=== PATIENT | female | born 1960 | race Caucasian/White ===

== ENCOUNTER 2020-08-20 17:28 | Emergency (ER) | payer BC, SELFPAY ==
--- NOTE | ~2020-08-20 | XR_ITS ---
XR ankle RT 2V DATE: 08/20/2020 17:46 INDICATION: Right ankle pain laterally. Dropped an anchor on the heel in January. TECHNIQUE: 4 views COMPARISON: None FINDINGS: There is plantar and very prominent posterior calcaneal enthesopathy. No fracture or dislocation of the ankle or disruption of the ankle mortise is detected. No periosteal reaction or bone destruction. IMPRESSION: Calcaneal enthesopathy Reviewed, dictated and finalized at location A. 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
[2020-08-20 17:30] VITALS: BP 135/85; PULSE 74; RESP 18; TEMP 36.8; O2SAT 96
--- NOTE | 2020-08-20 17:31 | ED.LOWEXIN ---
HPI - Extremity Injury (Lower) General Chief Complaint: Extremity Injury, Lower Stated Complaint: right foot pain Time Seen by Provider: 08/20/20 17:31 Source: patient and RN notes reviewed Mode of arrival: ambulatory Limitations: no limitations History of Present Illness HPI Narrative: 60 yo female presents to the [facility] with C/O right lateral ankle pain since dropping an anchor on it 28 January 2020. Treatment at that time. Patient reports that it was purple and swollen and painful for several weeks. States over the last couple of weeks she has been waking up at night in pain. Related Data Home Medications Medication Instructions Recorded Confirmed bupropion HCl 300 mg PO DAILY 08/20/20 08/20/20 chlorthalidone 25 mg DAILY 08/20/20 08/20/20 fluticasone propion-salmeterol inh INHALATION BID 08/20/20 [Advair Diskus] metoprolol succinate 50 mg PO DAILY 08/20/20 08/20/20 naproxen 500 mg BID PRN 08/20/20 08/20/20 Allergies Allergy/AdvReac Type Severity Reaction Status Date / Time No Known Allergies Allergy Verified 08/20/20 17:31 Review of Systems Review of Systems: Narrative: CONSTITUTIONAL: Denies fever, chills, or sweats. CARDIOVASCULAR: Denies chest pain, palpitations, or edema. RESPIRATORY: Denies cough or dyspnea. GASTROINTESTINAL: Denies abdominal pain, nausea, vomiting, or diarrhea. GENITOURINARY: Denies dysuria or hematuria. SKIN: Denies rash or itching. MUSCULOSKELETAL: Denies back pain or myalgia. right lateral Ankle pain NEUROLOGIC: Denies headache, numbness, or weakness. PSYCHIATRIC: Denies anxiety or depression. All other systems reviewed are negative, except as documented in HPI. [facility] Past Medical History Medical History (Updated 08/20/20 @ 18:06 by Yesy Soto) Anxiety Asthma Depressed HTN (hypertension) Social History Social History Gender identity (if verbalized by the patient): Female Comments At the time of my signature, I reviewed and agree with the nursing past medical, surgical, social, and family history. There is no relevant family history pertinent to the patient complaint. Exam Narrative: Exam Narrative: GENERAL: This is a well-nourished, well-developed patient, in no apparent distress. HEAD: normocephalic, atraumatic. EYES: PERRL. Sclera clear/white. Vision is grossly intact. NECK: Neck supple, non-tender without lymphadenopathy, masses or thyromegaly. CARDIOVASCULAR: Regular rate and rhythm without murmurs, gallops, or rubs. RESPIRATORY: Clear to auscultation. Breath sounds equal bilaterally. No wheezes, rales, or rhonchi. GASTROINTESTINAL: Abdomen soft, non-tender, nondistended. Bowel sounds are active. No hepato-splenomegaly, or palpable masses. No guarding. SKIN: warm, intact with no suspicious lesions or rash, good texture and turgor. NEURO: awake, alert, and oriented to person, place and time. There were no obvious focal neurologic abnormalities. EXTREMITIES: No clubbing, cyanosis, or edema. No joint tenderness, effusion, or edema noted. No calf tenderness. Negative Homans sign bilaterally. BACK: Nontender without deformity or crepitance. No flank tenderness. Extrem: Ankle/foot/toe images: 1. tender to palpation without redness, swelling or bruising. Full ROM against resistance both flexion and dorsiflexion. Course Vital Signs Vital signs: Vital Signs Temperature 98.2 F 08/20/20 17:30 Pulse Rate 74 08/20/20 17:30 Respiratory Rate 18 08/20/20 17:30 Blood Pressure 135/85 08/20/20 17:30 Pulse Oximetry 96 08/20/20 17:30 Temperature 98.2 F 08/20/20 17:30 Pulse Rate 74 08/20/20 17:30 Respiratory Rate 18 08/20/20 17:30 Blood Pressure 135/85 08/20/20 17:30 Pulse Oximetry 96 08/20/20 17:30 Reviewed, within normal limits MDM - Extremity Injury (Lower) Differential Diagnosis Differential diagnosis: Likely ankle sprain and strain and ankle fracture Imaging Data Radiologist
== END 2020-08-20 18:08 | disposition home or self-care (01) ==
PROVIDERS: Emergency Provider Nurse Practitioner; PCP Family Medicine
DX: S93.401A Sprain of unspecified ligament of right ankle, initial encounter (principal); S96.911A Strain of unspecified muscle and tendon at ankle and foot level, right foot, initial encounter; W20.8XXA Other cause of strike by thrown, projected or falling object, initial encounter; M77.31 Calcaneal spur, right foot; F41.9 Anxiety disorder, unspecified; J45.909 Unspecified asthma, uncomplicated; F32.9 Major depressive disorder, single episode, unspecified; I10 Essential (primary) hypertension
CPT/HCPCS: 73600; 99213; G0463

== ENCOUNTER 2020-09-17 11:17 | Outpatient (RCR) | payer BC, SELFPAY ==
[2020-09-17] MEDS: ACETAMINOPHEN 325 MG TABLET 650 MG PO (13:27)
[2020-09-17] MEDS: FAMOTIDINE 20 MG TABLET PO (13:27)
[2020-09-17] MEDS: diphenhydrAMINE HCl CAP 25 MG CAPSULE PO (13:27)
[2020-09-17 13:31] VITALS: BP 126/62; PULSE 62; RESP 16; TEMP 36.7; O2SAT 96
[2020-09-17 14:52] VITALS: BP 117/65; PULSE 64; RESP 16; TEMP 36.3; O2SAT 99
--- NOTE | 2020-09-17 15:10 | PC.NURSE ---
Bamlanivimab infusion completed, pt observed for 45 minutes post infusion. No signs or symptoms of allergic reaction assessed nor report by patient. Antibody treatment discharge instructions and FAQ sheet, along with infusion center discharge papers given to patient.
== END 2020-09-17 16:41 ==
LOC: AMCINF 11:17
PROVIDERS: PCP Family Medicine; Visit Provider Internal Medicine Hematology & Oncology
DX: Z23 Encounter for immunization (principal); U07.1 COVID-19; I10 Essential (primary) hypertension
CPT/HCPCS: A9270; M0239; Q0239

== ENCOUNTER → 2020-12-27 17:23 | Outpatient (CLI) | payer BC, SELFPAY ==
--- NOTE | ~2020-12-27 | MM_ITS ---
EXAMINATION: MM screening [facility] [place] HISTORY: Screening TECHNIQUE: Craniocaudal and mediolateral oblique 3-D tomosynthesis images were obtained and synthetic 2-D images were generated. CAD analysis was submitted and interpreted. COMPARISON: Comparison to multiple prior studies sequentially, with oldest reviewed study dated 03/2012. BREAST PARENCHYMAL COMPOSITION: There are scattered areas of fibroglandular density. FINDINGS: There is no evidence of suspicious mass, calcification, or architectural distortion to sugg est malignancy in either breast. There has been no suspicious interval change. IMPRESSION: 1. No mammographic evidence of malignancy. 2. Recommend routine screening mammography in one year. BI-RADS Category 1: Negative Reviewed, dictated and finalized at location A.
== END ==
PROVIDERS: PCP Family Medicine; Visit Provider Family Medicine
DX: Z12.31 Encounter for screening mammogram for malignant neoplasm of breast (principal)
CPT/HCPCS: 77063; 77067

== ENCOUNTER 2021-02-26 06:51 | Outpatient (CLI) | payer BC, SELFPAY ==
--- NOTE | ~2021-02-26 | CT_ITS ---
EXAMINATION: CT soft tissue neck wo con DATE: 02/26/2021 07:16 INDICATION: Cervical lymphadenopathy. TECHNIQUE: Computed tomography (CT) of the neck was performed without intravenous contrast. Automated exposure control and iterative reconstruction technique were employed. The dose-length product was 4 87.32 mGy-cm. COMPARISON: None FINDINGS: There is mild atelectasis in right lung upper lobe. There is a 10 x 13 mm lymph node superf icial to right sternocleidomastoid muscle. There is a skin marker overlying this lymph node. There ar e changes of anterior fusion procedure from C5 to C7. There is moderate cervical spondylosis. IMPRESSION: 1. Borderline-enlarged superficial lymph node in right neck, likely reactive. Reviewed, dictated and finalized at location A.
== END 2021-02-26 06:52 | disposition home or self-care (01) ==
PROVIDERS: PCP Family Medicine; Visit Provider Family Medicine
DX: R59.0 Localized enlarged lymph nodes (principal)
CPT/HCPCS: 70490

== ENCOUNTER → 2021-03-19 03:21 | Outpatient (CLI) | payer BC, SELFPAY ==
[2021-03-19 19:42] LABS: SARS-CoV-2 RNA PCR Negative
== END ==
PROVIDERS: PCP Family Medicine; Visit Provider Surgery
DX: Z01.812 Encounter for preprocedural laboratory examination (principal); Z20.822 Contact with and (suspected) exposure to COVID-19
CPT/HCPCS: C9803; U0003; U0005

== ENCOUNTER 2021-03-22 03:38 | Day surgery (SDC) | payer BC, SELFPAY ==
[2021-03-21 09:45] VITALS: BMI 32.4
--- NOTE | 2021-03-21 12:06 | WPDANESEPPF ---
Anes - Initial Pre Proc Eval Procedure: Operation Date: 03/22/21 14:00 Proposed Procedures p Excisional Biopsy Right Cervical Lymph Node - Carlos Yoder DO Date/Time: 03/21/21 12:06 Surgeon: Carlos Yoder DO Pre Op Diagnosis: right cervical lymphadenopathy Patient Data Age: 60 Gender: F Height: 1.7 m Weight: 94 kg Allergies Allergy/AdvReac Type Severity Reaction Status Date / Time No Known Allergies Allergy Verified 03/22/21 13:00 Home Medications Medication Instructions Recorded Confirmed Type bupropion HCl 300 mg PO QAM 08/20/20 03/22/21 History chlorthalidone 25 mg PO QAM 08/20/20 03/22/21 History fluticasone propion-salmeterol 1 inh INHALATION DAILY 08/20/20 03/22/21 History [Advair Diskus] metoprolol succinate 50 mg PO QAM 08/20/20 03/22/21 History naproxen 500 mg PO BID PRN 08/20/20 03/22/21 History albuterol sulfate 90 mcg/actuation 1 puff INHALATION Q4H PRN 03/06/21 03/22/21 History aerosol inhaler alprazolam 0.25 mg tablet 0.25 mg PO BID PRN 03/06/21 03/22/21 History loratadine 10 mg tablet 10 mg PO DAILY 03/06/21 03/22/21 History potassium 99 mg tablet 99 mg PO DAILY 03/06/21 03/22/21 History Patient hx anesthesia problems: none Family hx anesthesia problems: none PMFSH Past Medical History Medical History Anxiety Asthma Bronchitis Depressed HTN (hypertension) Migraine Surgical History Surgical History H/O umbilical hernia repair History of neck surgery S/P colonoscopy S/P laparoscopic cholecystectomy S/P oophorectomy Family History Family History Father Hypertension Diabetes mellitus Skin cancer Lung disease Mother Diabetes mellitus Hypertension Unknown Heart disease Hypertension Allergy Social History Social History Smoking status: Never smoker Alcohol intake: current Substance use: never Living arrangements: with family Additional living arrangements comments: [place] Gender identity (if verbalized by the patient): Female Spiritual care concerns: No Anes - Eval Final PreProcedure Day of Procedure 03/21/21 12:06 Patient weight: obese Heart: regular rate and rhythm Lungs: clear to auscultation and normal air movement Airway: Mallampati scale class II Neurological: alert and oriented Last oral intake: >/= 8 hours ASA classification: III Emergent: no Anesthetic plan: proceed Anesthesia type and monitoring: general GIVS and standard monitoring Informed Consent: The patient's anesthetic plan and its attendant risks and benefits were discussed with the patient/family/POA. Questions were solicited and answers provided to the satisfaction of the patient/family/POA.
--- NOTE | 2021-03-22 12:06 | ECG_ITS ---
Measurements Intervals [place] Rate: 60 P: 45 MT: 150 QRS: 71 QRSD: 86 T: 42 QT: 442 QTc: 444 Interpretive Statements SINUS RHYTHM BASELINE ARTIFACT- V2 NORMAL ECG Electronically Signed On 03-22-2021 13:34:38 CDT by Gallo Hamm D.O.
[2021-03-22 12:48] VITALS: BP 128/88; PULSE 65; RESP 16; TEMP 36.7; O2SAT 100
[2021-03-22] MEDS: LACTATED RINGERS 1,000 ML 30 ML IV CONT (13:29)
[2021-03-22 14:04] LABS: Anion Gap 7 mmol/L (8-16); Blood Urea Nitrogen 18 mg/dL (7-17); Carbon Dioxide 28 mmol/L (22-30); Chloride 103 mmol/L (98-107); Estimated CRCL calculation 70 ml/min; Estimated Glomerular Filt Rate > 60; Glucose 93 mg/dL (65-110); Potassium 3.5 mmol/L (3.4-5.0); Sodium 138 mmol/L (137-145)
--- NOTE | 2021-03-22 14:16 | WPDHPUPDATE1 ---
History and Physical Update Update Date/Time: 03/22/21 14:16 History and Physical has been reviewed, including an updated exam of the patient. There are NO changes in the patient's condition. Risks, benefits, and alternatives have been discussed and questions answered. Patient agrees to proceed with procedure.
[2021-03-22] MEDS: ceFAZolin 2 GM/D5W 50 ML 2 GM/50 ML BAG IVPB (14:30)
[2021-03-22] MEDS: BUPIVACAINE/EPINEPHRINE 0.25% 10 ML VIAL 30 ML INFILTRATE (14:47)
[2021-03-22 15:03] VITALS: BP 106/65; PULSE 76; RESP 20; O2SAT 97
--- NOTE | 2021-03-22 15:09 | W.PM.PROC2 ---
Procedure Note - Detailed Date of Procedure 03/22/21 Pre-op Diagnosis right cervical lymphadenopathy Post-op Diagnosis same Procedure Performed Excisional biopsy of deep right cervical lymph node Surgeon Carlos Yoder, DO Anesthesia MAC and local (1% lidocaine with epinephrine) Indications This is a 60-year-old woman who presented with right cervical lymphadenopathy over the past 2 months. She does have a history of anterior cervical fusion that was accessed from the right size in October 2020. She did not any problems noted initially in this region, the past 2 months she has palpable lymph nodes that are also somewhat tender. She has been placed on antibiotics and did not any resolution of her symptoms. She now presents for excisional biopsy of a cervical lymph Findings Excisional biopsy was performed. Patient had a deep right cervical lymph node just anterior to the sternocleidomastoid but deep to the platysma. The lymph node was identified and carefully dissected free using blunt dissection and electrocautery. Lymph node was completely excised sent to lab for pathology. Description of Procedure Procedure as well as risks, benefits, and alternatives were discussed with the patient. Written consent was obtained and placed in chart prior to procedure. Patient was brought back to surgical suite. She was placed supine operating table. Time-out was done to confirm patient and procedure. IV sedation was then administered by anesthesia department. Her right neck was prepped and draped in sterile fashion using chlorhexidine prep. 1% lidocaine with epinephrine was infiltrated palpable lymph node in superior right lateral neck. A 2 cm oblique incision was made directly over this area using a 15 blade scalpel. Electrocautery was used for hemostasis and for dissection down through subcutaneous fat and platysma. The lymph node was identified just deep to the platysma and this was carefully dissected free using blunt dissection and electrocautery. The lymph node was completely excised and sent to the lab for pathology. The wound bed was then inspected. Hemostasis appeared adequate and no other abnormalities were noted. The platysma was then reapproximated using 3-0 Vicryl simple interrupted sutures. The skin was then approximated using 4 Monocryl running subcuticular suture. Dino who has an appointment. Patient was awakened from anesthesia and transferred to Estimated Blood Loss 5 Pathology yes (Right cervical lymph node) Complications No immediate complications Condition stable Disposition same day
[2021-03-22 15:30] VITALS: BP 105/66; PULSE 74; RESP 20
[2021-03-22] MEDS: ONDANSETRON INJ 4 MG/2 ML VIAL IV PUSH (15:40)
[2021-03-22 16:00] VITALS: BP 108/69; PULSE 73; RESP 20
[2021-03-22 16:15] VITALS: BP 114/69; PULSE 62; RESP 20
== END 2021-03-22 16:20 | disposition home or self-care (01) ==
PROVIDERS: Anesthesiology; PCP Family Medicine; Visit Provider Surgery
PROC: (CPT 38510; principal; 2021-03-22 14:00)
DX: R59.0 Localized enlarged lymph nodes (principal); Z98.1 Arthrodesis status; I10 Essential (primary) hypertension; J45.909 Unspecified asthma, uncomplicated; F41.9 Anxiety disorder, unspecified; F32.9 Major depressive disorder, single episode, unspecified; E66.9 Obesity, unspecified; Z68.32 Body mass index [BMI] 32.0-32.9, adult; Z79.899 Other long term (current) drug therapy
CPT/HCPCS: 38510; 36415; 80048; 88184; 88305; 93005; J0690; J2250; J2405; J2704; J3010; J7120

== ENCOUNTER 2022-02-22 14:54 | Emergency (ER) | payer BC, SELFPAY ==
[2022-02-22 15:05] VITALS: BP 132/88; PULSE 85; RESP 18; TEMP 36.1; O2SAT 97
--- NOTE | 2022-02-22 15:23 | ED.URI ---
HPI - URI/Sore Throat General Chief Complaint: Upper Respiratory Infection Stated Complaint: Sore Throat,Rt Ear Irritation Time Seen by Provider: 02/22/22 15:23 History of Present Illness HPI Narrative: Daryn Anthony is a 61 yo female with a PMH of asthma, anxiety, seasonal allergies, hypertension, comes to [facility] with a weeks worth of symptoms of fever that run 100 to 101.4 and feels like he has swelling in her throat, R ear. She feels poorly and states that she has been fairly fatigued; she has history of asthma although her asthma has not been bothering her Related Data Home Medications Medication Instructions Recorded Confirmed bupropion HCl 300 mg 24 hr tablet, 300 mg PO QAM 08/20/20 02/22/22 extended release chlorthalidone 25 mg tablet 25 mg PO QAM 08/20/20 02/22/22 fluticasone 250 mcg-salmeterol 50 1 inh inhalation DAILY 08/20/20 02/22/22 mcg/dose blistr powdr for inhalation (Advair Diskus) metoprolol succinate 50 mg 50 mg PO QAM 08/20/20 02/22/22 tablet,extended release 24 hr albuterol sulfate 90 mcg/actuation 1 puff inhalation Q4H PRN Dyspnea 03/06/21 02/22/22 aerosol inhaler (Ventolin HFA) alprazolam 0.25 mg tablet 0.25 mg PO BID PRN Anxiety 03/06/21 02/22/22 loratadine 10 mg tablet 10 mg PO DAILY 03/06/21 02/22/22 Allergies Allergy/AdvReac Type Severity Reaction Status Date / Time No Known Allergies Allergy Verified 02/22/22 14:58 Review of Systems Review of Systems: CONSTITUTIONAL: Denies fever, chills, sweats. Fever EYES: Denies visual changes, redness, discharge. ENT: Denies rhinorrhea, has congestion, has sore throat, otalgia. Has sore neck with swallowing CARDIOVASCULAR: Denies chest pain, palpitations, edema. RESPIRATORY: Denies dyspnea, wheezing, cough GASTROINTESTINAL: Denies abdominal pain, nausea, vomiting, diarrhea. GENITOURINARY: Denies dysuria, hematuria, abnormal discharge SKIN: Denies rash or itching. NEUROLOGIC: Denies numbness, or focal weakness. PSYCHIATRIC: Denies anxiety or depression. PMFSH Past Medical History Medical History Anxiety Asthma Bronchitis Depressed HTN (hypertension) Migraine Surgical History Surgical History H/O umbilical hernia repair History of neck surgery S/P colonoscopy S/P laparoscopic cholecystectomy S/P oophorectomy Status post excisional biopsy 03/22/21 Excisional biopsy of deep right cervical lymph node Family History Family History Father Hypertension Diabetes mellitus Skin cancer Lung disease Mother Diabetes mellitus Hypertension Unknown Heart disease Hypertension Allergy Social History Social History Smoking status: Never smoker Alcohol intake: current Substance use: never Additional living arrangements comments: [place] Gender identity (if verbalized by the patient): Female Spiritual care concerns: No Comments At time of signature, I agree with nursing past medical, surgical, social and family history. There is no relevant family history pertinent to the presenting complaint. Exam Narrative: GENERAL: This is a well-nourished, well-developed patient, in moderate distress. HEAD: normocephalic, atraumatic. EYES: Sclera clear/white. Vision is grossly intact. EARS: External ears normal, auditory canals mild erythema and without drainage, TMs normal without perforation. Hearing grossly intact. NOSE: External nose normal without nasal discharge, nares without redness, has congestion, no rhinorrhea. THROAT: Mucous membranes moist, posterior pharynx erythema with some swelling to the posterior pharynx NECK: Neck supple,tender submandibular lymph nodes, mostly with swallowing CARDIOVASCULAR: Regular rate and rhythm without murmurs, gallops, or rubs. RESPIRATORY: Clear to auscu
== END 2022-02-22 15:43 | disposition home or self-care (01) ==
PROVIDERS: Emergency Provider Nurse Practitioner; PCP Family Medicine
DX: J02.9 Acute pharyngitis, unspecified (principal); R05.9 Cough, unspecified; Z20.822 Contact with and (suspected) exposure to COVID-19; J45.909 Unspecified asthma, uncomplicated; I10 Essential (primary) hypertension; F41.9 Anxiety disorder, unspecified; F32.A Depression, unspecified
CPT/HCPCS: 87081; 87426; 87880; 99213; C9803; G0463

== ENCOUNTER 2023-01-10 17:30 | Emergency (ER) | payer BC, SELFPAY ==
[2023-01-10 17:49] VITALS: BP 124/75; PULSE 81; RESP 16; TEMP 36.1; O2SAT 97
--- NOTE | 2023-01-10 18:29 | ED.SKABFB ---
HPI - Skin/Abscess/Foreign Bdy General Chief complaint: Skin/Abscess/Foreign Body Stated complaint: Insect Bite Rt Thigh Time Seen by Provider: 01/10/23 18:00 Source: patient Mode of arrival: ambulatory Limitations: no limitations History of Present Illness HPI narrative: 62-year-old female presented for evaluation of wound to the right thigh which she reports is improving since 01/02/2023. At that time she was seen by her PCP who prescribed doxycycline defer was thought to be a possible brown recluse spider bite. Patient completed 7/10 days of the antibiotic, stopping when she thought it was causing heart racing. Reports the healing wound is tender. Today she presented after noticing a red line stretching from this wound up to the hip. The red line has mild bruising surrounding it. She denies tenderness to the streaked area. Denies known injury. States she contacted pcp exchange and was told to get evaluated if there is concern for infection. Denies additional skin changes, n/v/d/f/c. Related Data Home Medications Medication Instructions Recorded Confirmed bupropion HCl 300 mg 24 hr tablet, 300 mg PO QAM 08/20/20 01/10/23 extended release chlorthalidone 25 mg tablet 25 mg PO QAM 08/20/20 01/10/23 fluticasone 250 mcg-salmeterol 50 1 inh inhalation DAILY 08/20/20 01/10/23 mcg/dose blistr powdr for inhalation (Advair Diskus) albuterol sulfate 90 mcg/actuation 1 puff inhalation Q4H PRN Dyspnea 03/06/21 01/10/23 aerosol inhaler (Ventolin HFA) alprazolam 0.25 mg tablet 0.25 mg PO BID PRN Anxiety 03/06/21 01/10/23 loratadine 10 mg tablet 10 mg PO DAILY 03/06/21 01/10/23 gabapentin 100 mg capsule 100 mg PO DAILY 11/28/22 01/10/23 naproxen 500 mg tablet 500 mg PO DAILY 11/28/22 01/10/23 semaglutide 1 mg/dose (4 mg/3 mL) 1 mg subcut WEEKLY 01/08/23 01/10/23 subcutaneous pen injector Allergies Allergy/AdvReac Type Severity Reaction Status Date / Time No Known Allergies Allergy Verified 01/10/23 17:43 Review of Systems Review of Systems: CONSTITUTIONAL: Denies body aches, fever, chills, or sweats. EYES: Denies visual changes, redness, or discharge. ENT: Denies rhinorrhea, congestion CARDIOVASCULAR: Denies chest pain, palpitations, or edema. RESPIRATORY: Denies cough or dyspnea. GASTROINTESTINAL: Denies abdominal pain, nausea, vomiting, or diarrhea. SKIN: per HPI MUSCULOSKELETAL: Denies back pain, joint pain, or myalgia. NEUROLOGIC: Denies headache, numbness, tingling, or weakness. [facility] Past Medical History Medical History HTN (hypertension) Major depressive disorder, recurrent, in partial remission Mild persistent asthma, uncomplicated Other cervical disc degeneration, unspecified cervical region Prediabetes Pure hypercholesterolemia, unspecified Surgical History Surgical History H/O umbilical hernia repair History of neck surgery S/P colonoscopy S/P laparoscopic cholecystectomy S/P oophorectomy Status post excisional biopsy 03/22/21 Excisional biopsy of deep right cervical lymph node Family History Family History Father Hypertension Diabetes mellitus Skin cancer Lung disease Mother Diabetes mellitus Hypertension Unknown Heart disease Hypertension Allergy Social History Social History Smoking status: Never smoker Alcohol intake: current Substance use: never Substance use type: does not use Lack of Transportation: No Lack of Food: Never True Current Housing: I Have Housing Concerned About Future Housing: No Difficulty Paying Gas/Electric Bills: No Difficulty Paying for Meds: No Currently Unemployed: No Education: Trade/Vocational Certificate Difficulty w/ Childcare or Family Care: No Living arrangements: other Additional l
== END 2023-01-10 18:32 | disposition home or self-care (01) ==
PROVIDERS: Emergency Provider Nurse Practitioner Family; PCP Family Medicine
DX: S70.311A Abrasion, right thigh, initial encounter (principal); I10 Essential (primary) hypertension; E78.00 Pure hypercholesterolemia, unspecified; R73.03 Prediabetes
CPT/HCPCS: 99211; G0463

== ENCOUNTER 2023-01-23 00:08 | Day surgery (SDC) | payer BC, SELFPAY ==
[2023-01-08 11:32] VITALS: BMI 26.6
[2023-01-23 11:21] VITALS: BP 156/83; PULSE 89; RESP 18; TEMP 36.4; O2SAT 100
[2023-01-23] MEDS: LACTATED RINGERS 1,000 ML 150 ML IV CONT (11:25)
--- NOTE | 2023-01-23 11:45 | PM.HPGS ---
History of Present Illness History of Present Illness Consent: Risks, benefits, and alternatives have been discussed and questions answered. Patient agrees to proceed with procedure. Chief complaint: neoplasm screening Narrative: Daryn Anthony is a 62 year old female Presents for screening colonoscopy. Patient's current weight appetite and bowel movements are normal. Patient denies abdominal pain. She has had no bleeding. Family history is noncontributory. Review of Systems Review of Systems: Review of systems noncontributory. [facility] Past Medical History Medical History HTN (hypertension) Major depressive disorder, recurrent, in partial remission Mild persistent asthma, uncomplicated Other cervical disc degeneration, unspecified cervical region Prediabetes Pure hypercholesterolemia, unspecified Surgical History Surgical History H/O umbilical hernia repair History of neck surgery S/P colonoscopy S/P laparoscopic cholecystectomy S/P oophorectomy Status post excisional biopsy 03/22/21 Excisional biopsy of deep right cervical lymph node Family History Family History Father Hypertension Diabetes mellitus Skin cancer Lung disease Mother Diabetes mellitus Hypertension Unknown Heart disease Hypertension Allergy Social History Social History Smoking status: Never smoker Alcohol intake: current Substance use: never Substance use type: does not use Lack of Transportation: No Lack of Food: Never True Current Housing: I Have Housing Concerned About Future Housing: No Difficulty Paying Gas/Electric Bills: No Difficulty Paying for Meds: No Currently Unemployed: No Education: Trade/Vocational Certificate Difficulty w/ Childcare or Family Care: No Living arrangements: other Additional living arrangements comments: [place] Occupation/Education: occupation Gender identity (if verbalized by the patient): Female Sexual Orientation (if Verbalized by the Patient): Straight or Heterosexual Spiritual care concerns: No Meds Home Medications and Allergies Home Medications Medication Instructions Recorded Confirmed Type bupropion HCl 300 mg 24 hr tablet, 300 mg PO QAM 08/20/20 01/10/23 History extended release chlorthalidone 25 mg tablet 25 mg PO QAM 08/20/20 01/10/23 History fluticasone 250 mcg-salmeterol 50 1 inh inhalation DAILY 08/20/20 01/10/23 History mcg/dose blistr powdr for inhalation (Advair Diskus) albuterol sulfate 90 mcg/actuation 1 puff inhalation Q4H PRN Dyspnea 03/06/21 01/23/23 History aerosol inhaler (Ventolin HFA) alprazolam 0.25 mg tablet 0.25 mg PO BID PRN Anxiety 03/06/21 01/10/23 History loratadine 10 mg tablet 10 mg PO DAILY 03/06/21 01/10/23 History gabapentin 100 mg capsule 100 mg PO DAILY 11/28/22 01/10/23 History naproxen 500 mg tablet 500 mg PO DAILY 11/28/22 01/10/23 History semaglutide 1 mg/dose (4 mg/3 mL) 1 mg subcut WEEKLY 01/08/23 01/10/23 History subcutaneous pen injector potassium chloride 20 mEq 20 meq PO DAILY #90 tabs 01/19/23 01/23/23 Rx tablet,extended release(part/cryst) Allergies Allergy/AdvReac Type Severity Reaction Status Date / Time No Known Allergies Allergy Verified 01/23/23 11:20 Vital Signs Vital Signs - 24 hr 01/23/23 11:21 Temperature 97.5 F L Pulse Rate 89 Respiratory Rate 18 Blood Pressure 156/83 H Pulse Oximetry 100 Oxygen Delivery Room Air Exam Narrative: Physical exam reveals patient to be alert. Vital signs stable. HEENT exam is unremarkable. Patient is anicteric. Lungs are clear to auscultation and percussion. Heart is without murmur or extra sounds. Abdomen bowel sounds are present soft nontender with no organomegaly. Digital externa
--- NOTE | 2023-01-23 12:27 | WPDANESEPPF ---
Anes - Initial Pre Proc Eval Procedure: Operation Date: 01/23/23 12:30 Proposed Procedures p Screening Colonoscopy - Chalino Maxwell MD Date/Time: 01/23/23 12:27 Surgeon: Chalino Maxwell MD Pre Op Diagnosis: neoplasm screening Patient Data Age: 62 Gender: F Height: 1.7 m Weight: 74.9 kg Last Vital Signs Temp 97.5 F L 01/23/23 11:21 Pulse 89 01/23/23 11:21 Resp 18 01/23/23 11:21 BP 156/83 H 01/23/23 11:21 Pulse Ox 100 01/23/23 11:21 O2 Del Method Room Air 01/23/23 11:21 Allergies Allergy/AdvReac Type Severity Reaction Status Date / Time No Known Allergies Allergy Verified 01/23/23 11:20 Home Medications Medication Instructions Recorded Confirmed Type bupropion HCl 300 mg 24 hr tablet, 300 mg PO QAM 08/20/20 01/10/23 History extended release chlorthalidone 25 mg tablet 25 mg PO QAM 08/20/20 01/10/23 History fluticasone 250 mcg-salmeterol 50 1 inh inhalation DAILY 08/20/20 01/10/23 History mcg/dose blistr powdr for inhalation (Advair Diskus) albuterol sulfate 90 mcg/actuation 1 puff inhalation Q4H PRN Dyspnea 03/06/21 01/23/23 History aerosol inhaler (Ventolin HFA) alprazolam 0.25 mg tablet 0.25 mg PO BID PRN Anxiety 03/06/21 01/10/23 History loratadine 10 mg tablet 10 mg PO DAILY 03/06/21 01/10/23 History gabapentin 100 mg capsule 100 mg PO DAILY 11/28/22 01/10/23 History naproxen 500 mg tablet 500 mg PO DAILY 11/28/22 01/10/23 History semaglutide 1 mg/dose (4 mg/3 mL) 1 mg subcut WEEKLY 01/08/23 01/10/23 History subcutaneous pen injector potassium chloride 20 mEq 20 meq PO DAILY #90 tabs 01/19/23 01/23/23 Rx tablet,extended release(part/cryst) Patient hx anesthesia problems: none Family hx anesthesia problems: none Results Review: All pre-operative results and documents have been reviewed as part of the pre-operative evaluation. [facility] Past Medical History Medical History HTN (hypertension) Major depressive disorder, recurrent, in partial remission Mild persistent asthma, uncomplicated Other cervical disc degeneration, unspecified cervical region Prediabetes Pure hypercholesterolemia, unspecified Surgical History Surgical History H/O umbilical hernia repair History of neck surgery S/P colonoscopy S/P laparoscopic cholecystectomy S/P oophorectomy Status post excisional biopsy 03/22/21 Excisional biopsy of deep right cervical lymph node Family History Family History Father Hypertension Diabetes mellitus Skin cancer Lung disease Mother Diabetes mellitus Hypertension Unknown Heart disease Hypertension Allergy Social History Social History Smoking status: Never smoker Alcohol intake: current Substance use: never Substance use type: does not use Lack of Transportation: No Lack of Food: Never True Current Housing: I Have Housing Concerned About Future Housing: No Difficulty Paying Gas/Electric Bills: No Difficulty Paying for Meds: No Currently Unemployed: No Education: Trade/Vocational Certificate Difficulty w/ Childcare or Family Care: No Living arrangements: other Additional living arrangements comments: [place] Occupation/Education: occupation Gender identity (if verbalized by the patient): Female Sexual Orientation (if Verbalized by the Patient): Straight or Heterosexual Spiritual care concerns: No Anes - Eval Final PreProcedure Day of Procedure 01/23/23 12:27 Patient weight: normal Heart: regular rate and rhythm Lungs: clear to auscultation Airway: Mallampati scale class II Neurological: alert and oriented Last oral intake: >/= 8 hours ASA classification: II Emergent: no Anesthetic plan: proceed Anesthesia type and monitoring: general GIVS and standard monit
[2023-01-23 12:44] VITALS: BP 111/66; PULSE 76; RESP 19; O2SAT 100
[2023-01-23 12:54] VITALS: BP 130/76; PULSE 75; RESP 18; O2SAT 100
[2023-01-23 13:04] VITALS: BP 147/85; PULSE 69; RESP 15; O2SAT 100
== END 2023-01-23 13:09 | disposition home or self-care (01) ==
PROVIDERS: PCP Family Medicine; Visit Provider Internal Medicine Gastroenterology
PROC: 0DJD8ZZ Inspection of Lower Intestinal Tract, Via Natural or Artificial Opening Endoscopic (ICD-10-PCS; CPT 45378; principal; 2023-01-23 12:30)
DX: Z12.11 Encounter for screening for malignant neoplasm of colon (principal); K64.8 Other hemorrhoids; I10 Essential (primary) hypertension; E78.00 Pure hypercholesterolemia, unspecified; J45.30 Mild persistent asthma, uncomplicated; R73.03 Prediabetes; F33.41 Major depressive disorder, recurrent, in partial remission; Z79.899 Other long term (current) drug therapy; Z79.51 Long term (current) use of inhaled steroids
CPT/HCPCS: 45378; J2704; J7120

== ENCOUNTER → 2023-07-13 10:36 | Outpatient (CLI) | payer BC, SELFPAY ==
--- NOTE | ~2023-07-13 | CT_ITS ---
Non-contrast CT scan of the Abdomen and Pelvis Clinical indication: Abdominal pain Technique: 2.5 mm axial scans were obtained through the abdomen and pelvis without intravenous or or al contrast. Dose reduction technique was used on this scan by utilizing automated exposure control a nd iterative reconstruction technique. The dose-length product (DLP) was 472.01 mGy-cm. Findings: Images through the lung bases reveal no abnormalities. There is no evidence of renal or ureteral calculi. The kidneys and the ureters are nondilated. The liver, spleen, pancreas, gallbladder, and adrenals appear normal. There is no aortic aneurysm. There is no evidence of bowel obstruction. Appendix is minimally prominent 7-8 mm, but there is no in flammatory change present. Images through the pelvis were performed. There is no evidence of ascites or lymphadenopathy. Urinary bladder unremarkable. No pelvic mass seen. Impression: Minimally dilated appendix without significant inflammatory change. Correlate clinically for very ear ly acute appendicitis. Reviewed, dictated and finalized at location . ICAL TRIAL EDUCATOR Impression: Minimally dilated appendix without significant inflammatory change. Correlate c linically for very early acute appendicitis.
== END ==
PROVIDERS: PCP Family Medicine; Visit Provider Family Medicine
DX: R10.31 Right lower quadrant pain (principal)
CPT/HCPCS: 74176

== ENCOUNTER 2023-07-24 04:15 | Day surgery (SDC) | payer BC, SELFPAY ==
[2023-07-22 12:49] VITALS: BMI 24.7
--- NOTE | 2023-07-22 12:54 | PC.NURSE ---
Report to the Outpatient Waiting Room, entrance under the green pavilion located off [facility], at time 0600 on date 07/24/23. Planned Procedure Time: 0730. Time changes happen often and if your time is changed the preop area will call you the afternoon before. - You and your visitor will be asked to self-screen and do not enter if you have any COVID symptoms. - A mask is optional within the hospital at this time. Patients may have clear liquids (water, carbonated beverages, clear teas, apple juice) until 3 hours prior to surgery with a maximum of 20 ounces. - No food from midnight until time of surgery Take the following medications with a SIP of water the morning of surgery: BUPROPION, INHALERS DO NOT STOP ANY OF YOUR OTHER PRESCRIPTION MEDICATIONS PRIOR TO SURGERY ?EXCEPT THE FOLLOWING Medications to discontinue per physician: VITAMINS Date to take last dose: NO MORE UNTIL AFTER SURGERY PT HAS ALREADY STOPPED OZEMPIC Please no make-up, nail emirati, hairspray, perfume, deodorant, or body powder the day of surgery. No jewelry (including any body piercings) or valuables the day of surgery, leave them at home. Please take a shower or bath the night before, or the morning of, surgery with an antibacterial soap. Wear comfortable, loose fitting clothing. - Jewelry must be removed prior to entering the operating room. Rings and piercings that are not removed may be cut off. - The hospital will not accept responsibility for valuables. - Please leave all valuables, including medications, at home the day of surgery. If you are going home after surgery, a licensed funeral car driver must drive you home. - NO public transportation without another adult if you receive anesthesia. - We recommend that an adult stay with you for 24 hours following discharge. - We also recommend that you do not drive, make important decision, drink alcoholic beverages, or take any drugs that were not prescribed by your health care provider for at least 24 hours after your discharge time. Follow any additional instructions given to you from your surgeon. If you or anyone in your household have experienced Covid symptoms in the past week, please notify your surgeon or the nurse liaison at the phone number below for possible testing. Telephone instructions given to PT - CRIS RIVERA and asked if any additional questions and then verbalized understanding. Patient advised to call surgeon office or pre surgery nurse liaison [phone] if any additional questions.
[2023-07-24] VITALS (8 sets, daily range): BP systolic 118–175; BP diastolic 73–100; PULSE 60–84; RESP 14–20; TEMP 36.2–36.6; O2SAT 95–100
--- NOTE | 2023-07-24 07:04 | WPDANESEPPF ---
Anes - Initial Pre Proc Eval Procedure: Operation Date: 07/24/23 07:30 Proposed Procedures p Laparoscopic Appendectomy - Lindsey Hurtado MD Date/Time: 07/24/23 07:04 Surgeon: Lindsey Hurtado MD Pre Op Diagnosis: chronic appendicitis Patient Data Age: 63 Gender: F Height: 1.68 m Weight: 69.4 kg Allergies Allergy/AdvReac Type Severity Reaction Status Date / Time No Known Allergies Allergy Verified 07/22/23 12:47 Home Medications Medication Instructions Recorded Confirmed Type bupropion HCl 300 mg 24 hr tablet, 300 mg PO QAM 08/20/20 07/22/23 History extended release chlorthalidone 25 mg tablet 25 mg PO QAM 08/20/20 07/22/23 History fluticasone 250 mcg-salmeterol 50 1 inh inhalation DAILY 08/20/20 07/22/23 History mcg/dose blistr powdr for inhalation (Advair Diskus) albuterol sulfate 90 mcg/actuation 1 puff inhalation Q4H PRN Dyspnea 03/06/21 07/22/23 History aerosol inhaler (Ventolin HFA) alprazolam 0.25 mg tablet 0.25 mg PO BID PRN Anxiety 03/06/21 07/22/23 History loratadine 10 mg tablet 10 mg PO DAILY 03/06/21 07/22/23 History naproxen 500 mg tablet 500 mg PO DAILY 11/28/22 07/22/23 History semaglutide 1 mg/dose (4 mg/3 mL) 1 mg subcut WEEKLY 01/08/23 07/22/23 History subcutaneous pen injector potassium chloride 20 mEq 20 meq PO DAILY #90 tabs 01/19/23 07/22/23 Rx tablet,extended release(part/cryst) Patient hx anesthesia problems: none Family hx anesthesia problems: none Results Review: All pre-operative results and documents have been reviewed as part of the pre-operative evaluation. [facility] Past Medical History Medical History HTN (hypertension) Major depressive disorder, recurrent, in partial remission Mild persistent asthma, uncomplicated Other cervical disc degeneration, unspecified cervical region Prediabetes Pure hypercholesterolemia, unspecified Surgical History Surgical History H/O umbilical hernia repair History of neck surgery S/P colonoscopy S/P laparoscopic cholecystectomy S/P oophorectomy Status post excisional biopsy 03/22/21 Excisional biopsy of deep right cervical lymph node Family History Family History Father Hypertension Diabetes mellitus Skin cancer Lung disease Mother Diabetes mellitus Hypertension Unknown Heart disease Hypertension Allergy Social History Social History Smoking status: Never smoker Alcohol intake: never Substance use: never Substance use type: does not use Lack of Transportation: No Lack of Food: Never True Current Housing: I Have Housing Concerned About Future Housing: No Difficulty Paying Gas/Electric Bills: No Difficulty Paying for Meds: No Currently Unemployed: No Education: Trade/Vocational Certificate Difficulty w/ Childcare or Family Care: No Living arrangements: with family Additional living arrangements comments: [place] Occupation/Education: occupation Gender identity (if verbalized by the patient): Female Sexual Orientation (if Verbalized by the Patient): Straight or Heterosexual Spiritual care concerns: No Anes - Eval Final PreProcedure Day of Procedure 07/24/23 07:04 Patient weight: normal Heart: regular rate and rhythm Lungs: clear to auscultation Airway: Mallampati scale class II Neurological: alert and oriented Last oral intake: >/= 8 hours ASA classification: III Emergent: no Anesthetic plan: proceed Anesthesia type and monitoring: general ETT and standard monitoring Results Review: All pre-operative results and documents have been reviewed as part of the pre-operative evaluation. Informed Consent: The patient's anesthetic plan and its attendant risks and benefits were discussed with the patient/family/P
--- NOTE | 2023-07-24 07:17 | WPDHPUPDATE1 ---
History and Physical Update Update Date/Time: 07/24/23 07:17 History and Physical has been reviewed, including an updated exam of the patient. There are NO changes in the patient's condition. Risks, benefits, and alternatives have been discussed and questions answered. Patient agrees to proceed with procedure.
[2023-07-24] MEDS: LACTATED RINGERS 1,000 ML 30 ML IV CONT (07:20)
[2023-07-24] MEDS: KETOROLAC 15 MG/ML VIAL (*BKC) IV PUSH (07:20)
[2023-07-24 07:22] LABS: Glucose Point of Care 94 mg/dl (65-105)
--- NOTE | 2023-07-24 07:27 | ECG_ITS ---
Measurements Intervals [place] Rate: 66 P: 69 MD: 157 QRS: 86 QRSD: 125 T: 47 QT: 433 QTc: 456 Interpretive Statements SINUS RHYTHM RIGHT BUNDLE BRANCH BLOCK [120+ ms QRS DURATION, UPRIGHT V1, 40+ ms S IN I/aVL/V4/V5/V6] COMPARED TO ECG 03/22/2021 13:08:38 RIGHT BUNDLE-BRANCH BLOCK NOW PRESENT Electronically Signed On 07-24-2023 16:35:11 VULNERABILITY ASSESSMENT ANALYST by Lyudmila Ruvalcaba M.D.
[2023-07-24] MEDS: metroNIDAZOLE 500 MG/ISO 100ML 500 MG/100 ML BAG 100 MG IVPB (07:45)
[2023-07-24] MEDS: ceFAZolin 2 GM/D5W 50 ML 2 GM/50 ML BAG IVPB (08:00)
[2023-07-24] MEDS: BUPIVACAINE/EPINEPHRINE 0.5% 50 ML VIAL 30 ML INFILTRATE (08:22)
--- NOTE | 2023-07-24 08:26 | P.OP_ITS ---
Procedure Note - Detailed Date of Procedure 07/24/23 Pre-op Diagnosis chronic appendicitis Post-op Diagnosis Same Procedure Performed laparoscopic appendectomy Surgeon Lindsey Hurtado MD Anesthesia General Indications 63-year-old female presenting with chronic right lower quadrant pain. CT suggestive of chronic appendicitis. Findings Chronic appendicitis no evidence of perforation Description of Procedure The patient was taken to the operating room and placed in the supine position. After adequate induction of general anesthesia, the patient was prepped and draped in the normal sterile fashion. A time-out was then done to verify the patient's identity, as well as the procedure being performed. I began by making a 5 mm incision in the infraumbilical region, through this a Veress needle was placed in the peritoneal cavity. CO2 gas was then insufflated and after adequate pneumoperitoneum was achieved the Veress needle was removed. Then placed a 5 mm Optiview trocar under direct visualization into the peritoneal cavity. I then insufflated through this trocar site and the endoscope was placed into the trocar. Under direct visualization, placed 2 further 5 mm suprapubic port as well as an additional 12 mm port in the left lower abdomen. At this point identified the cecum, I retracted the cecum both medially and superiorly allowing me to expose the appendix. The appendix was noted to be p rominent and minimally inflamed. I was able to grasp the appendix at the tip and retract this both laterally and superior. I then was able to locate the base of the appendix with the cecum. I created a window with the [place] dissector between the appendix itself and the mesoappendix. I then transected the mesoappendix with a white vascular staple load. The Endo-JOSE was then reloaded with a blue staple load and I transected the base of the appendix. Once the specimen was completely detached, an endo-pouch was placed into the 12 mm port site and the specimen was removed through the endo-pouch. The appendiceal specimen will be sent to pathology for further review. I then copiously irrigated the right lower quadrant. There was some mild oozing at the vascular staple line which was controlled Bovie cautery. Hemostasis was noted at both staple lines no other pathology was seen in this area. I then moved the camera to the suprapubic port to check our its port of entry. No iatrogenic injury or other pathology was noted in the upper abdomen. I then closed the 12 mm port site with a Oli code and 0 Vicryl suture under direct visualization. At this point, the abdomen was desufflated and all ports were removed. All port sites were closed with 4 Monocryl subcuticular suture. Dermabond was placed on all wounds. The patient tolerated the procedure well and was extubated in the operating room postop. She will be sent to the recovery room in stable condition. Estimated Blood Loss 10 Drains No Packing No Pathology Yes Complications No immediate complications Condition Stable Disposition PACU [facility] Billing Surgery - Charge Forward: Surgery Billing
[2023-07-24 08:47] LABS: Glucose Point of Care 137 mg/dl (65-105)
[2023-07-24] MEDS: fentaNYL CITRATE INJ (*CRX) 100 MCG/2 ML VIAL 25 MCG IV PUSH (08:59)
[2023-07-24] MEDS: ONDANSETRON INJ 4 MG/2 ML VIAL IV PUSH (09:28)
[2023-07-24] MEDS: oxyCODONE HCL (*CRX) 5 MG TAB IR PO (09:55)
== END 2023-07-24 10:44 | disposition home or self-care (01) ==
PROVIDERS: PCP Family Medicine; Visit Provider Surgery
PROC: 0DTJ4ZZ Resection of Appendix, Percutaneous Endoscopic Approach (ICD-10-PCS; CPT 44970; principal; 2023-07-24 07:30)
DX: K36 Other appendicitis (principal); I10 Essential (primary) hypertension; E78.00 Pure hypercholesterolemia, unspecified
CPT/HCPCS: 44970; 82948; 88304; 93005; A9270; J0330; J0690; J1836; J1885; J2250; J2270; J2405; J2704; J3010; J7030; J7120

== ENCOUNTER 2023-12-26 08:18 | Outpatient (CLI) | payer BC, SELFPAY ==
--- NOTE | ~2023-12-26 | MR_ITS ---
EXAMINATION: MR cervical spine wo con DATE: 12/26/2023 08:57 INDICATION: Other cervical disc degeneration, unspecified. Left arm and neck pain. Left arm numbness and tingling. TECHNIQUE: Magnetic resonance imaging (MRI) of the cervical spine was performed without intravenous c ontrast. COMPARISON: Cervical spine MRI 10/30/2018 FINDINGS: There is 3 degrees dextrocurvature of cervical spine. Vertebral body heights are normal. Th ere are changes of anterior fusion procedure at C5-C6 and C6-C7 with interbody devices. There is an a nterior plate with screws at C6-C7. There is mildly decreased disc height at C4-C5. The spinal cord s ignal intensity is normal. The following disc levels are specifically discussed: C2-C3: The disc does not extend beyond the endplate margin. There is no uncovertebral joint osteoarth ritis. There is severe right and mild left facet joint osteoarthritis. There is no neural foraminal s tenosis. There is no central canal stenosis. C3-C4: There is a central extrusion. There is mild bilateral uncovertebral joint osteoarthritis. Ther e is severe bilateral facet joint osteoarthritis. There is moderate right and mild left neural forami nal stenosis. There is mild central canal stenosis. C4-C5: The disc is bulging. There is mild right and severe left uncovertebral joint osteoarthritis. T here is severe bilateral facet joint osteoarthritis. There is mild right and moderate left neural for aminal stenosis. There is mild central canal stenosis. C5-C6: There is mild bilateral uncovertebral joint hypertrophy. There is no facet joint osteoarthriti s. There is mild bilateral neural foraminal stenosis. There is no central canal stenosis. C6-C7: There is severe bilateral uncovertebral joint hypertrophy. There is severe bilateral facet heidi nt osteoarthritis. There is mild right and moderate left neural foraminal stenosis. There is no centr al canal stenosis. C7-T1: The disc does not extend beyond the endplate margin. There is no uncovertebral joint osteoarth ritis. There is severe bilateral facet joint osteoarthritis. There is mild bilateral neural foraminal stenosis. There is no central canal stenosis. IMPRESSION: 1. Moderate cervical spondylosis, mildly worsened from 10/30/2018. 2. Anterior fusion procedures at C5-C6 and C6-C7. Reviewed, dictated and finalized at location E.
== END 2023-12-26 08:19 | disposition home or self-care (01) ==
PROVIDERS: PCP Family Medicine; Visit Provider Family Medicine
DX: M43.02 Spondylolysis, cervical region (principal); Z98.1 Arthrodesis status
CPT/HCPCS: 72141

== ENCOUNTER 2024-07-13 07:02 | Outpatient (CLI) | payer BC, SELFPAY ==
--- NOTE | ~2024-07-13 | XR_ITS ---
Cervical Spine: AP, lateral, open-mouth views Clinical History: Radiculopathy Findings: The normal lordotic curve is maintained. There is anterior fusion from C6 to C7. No fractur e or subluxation seen. There is also probable fusion across the C5-C6 disc space. There is moderate d egenerative disc narrowing at C4-C5. There is moderate facet arthropathy. No instability seen on flex ion or extension. Pre-vertebral soft tissues are unremarkable. Impression: Moderate degenerative spondylosis, as above. Anterior hardware fusion from C6 to C7. Probable additional fusion across the C5-C6 disc space. Reviewed, dictated and finalized at location M. ER PRODUCTION LINE GAS Impression: Moderate degenerative spondylosis, as above. Anterior hardware fusion from C6 to C7. Probable additional fusion across the C 5-C6 disc space.
== END 2024-07-13 07:03 | disposition home or self-care (01) ==
PROVIDERS: PCP Family Medicine; Visit Provider Neurological Surgery
DX: M47.812 Spondylosis without myelopathy or radiculopathy, cervical region (principal); M43.22 Fusion of spine, cervical region
CPT/HCPCS: 72050

== ENCOUNTER 2024-08-03 09:59 | Outpatient (CLI) | payer BC, SELFPAY ==
--- NOTE | 2024-08-03 10:50 | ECG_ITS ---
Test Date: 2024-08-03 11:02:06 Measurements Intervals [place] Rate: 67 P: 43 MT: 145 QRS: 72 QRSD: 128 T: 32 QT: 409 QTc: 433 Interpretive Statements SINUS RHYTHM POSSIBLE RIGHT VENTRICULAR CONDUCTION DELAY [RSR (QR) IN V1/V2] No previous ECG available for comparison Electronically Signed On 08-04-2024 16:24:58 TREE FRUIT AND NUT FARMING SUPERVISOR by Gerahrd Storey M.D.
[2024-08-03 12:01] LABS: Add Urine Microscopic? YES; Appearance Urine Clear (Clear); Bacteria Urine 3+ /hpf; Bilirubin Urine Negative (Negative); Blood Urine Negative (Negative); Color Urine Dark Yellow (Yellow); Glucose Urine UA Negative (Negative); Ketones Urine Negative (Negative); Leukocyte Esterase Ur 1+ LEU/UL (Negative); Nitrate Urine Negative (Negative); Non Pathogenic Casts >20; Protein Urine Negative (Negative); RBC Urine 0-2 /hpf (0-2); Specific Grav Ur 1.021 (1.001-1.035); Squamous Epithelial Cell Urine Few /hpf (Few)
[2024-08-03 12:11] LABS: Anion Gap 8 mmol/L (4-12); Blood Urea Nitrogen 18 mg/dL (7-17); Calcium 9.2 mg/dL (8.4-10.2); Carbon Dioxide 30 mmol/L (22-30); Chloride 101 mmol/L (98-107); Estimated Glomerular Filt Rate 44; Glucose 89 mg/dL (65-110); Potassium 4.3 mmol/L (3.4-5.0); Sodium 139 mmol/L (137-145)
[2024-08-03 12:13] LABS: INR 0.9; Prothrombin Time 12.7 Seconds (11.1-14.7)
[2024-08-03 12:14] LABS: Partial Thromboplastin Time 34.1 Seconds (22.3-36.8)
[2024-08-03 12:26] LABS: Hematocrit 38.5 % (37.0-47.0); Hemoglobin 12.7 g/dL (12.0-15.0); Mean Corpuscular Hemoglobin 30.5 pg (26-34); Mean Corpuscular Volume 92.5 fl (80-100); Mean Platelet Volume 9.4 fl (7.4-10.4); Platelet Count Result 262 k/mm3 (150-375); Red Blood Count 4.16 M/mm3 (4.2-5.4); White Blood Count 5.9 K/mm3 (4.5-10.0)
== END 2024-08-03 10:00 | disposition home or self-care (01) ==
LOC: ANHSURGERY 10:03
PROVIDERS: PCP Family Medicine; Visit Provider Neurological Surgery
DX: Z01.818 Encounter for other preprocedural examination (principal); M50.321 Other cervical disc degeneration at C4-C5 level; I10 Essential (primary) hypertension; Z79.899 Other long term (current) drug therapy
CPT/HCPCS: 36415; 80048; 81001; 85027; 85610; 85730; 87086; 87181; 93005

== ENCOUNTER 2024-08-07 07:50 | Outpatient (CLI) | payer BC, SELFPAY ==
--- NOTE | ~2024-08-07 | MR_ITS ---
MRI of the cervical spine Clinical History: Radiculopathy Technique: Axial T2-weighted and gradient images, and sagittal T1-weighted, T2-weighted, and STIR hiram ges were acquired. COMPARISON: 12/26/2023 Findings: Stable anterior fusion from C5 through C7 with interbody fusion as well. No acute fracture or subluxation. Osseous alignment is unchanged from prior exam. No suspicious bone marrow signal abno rmality seen. At C2-C3, there is no disc bulge or herniation. No spinal canal stenosis, cord compression, or neural foraminal narrowing. There is minimal right facet arthropathy. At C3-C4, there is mild degenerative disc narrowing. There is disc ossify compress and bilateral face t arthropathy. There is bilateral neural foraminal narrowing, right worse than left. No lita canal s tenosis or cord compression. At C4-C5, there is disc osteophyte complex with bilateral facet arthropathy. There is bilateral neura l foraminal narrowing, left worse than right. Probable minimal canal stenosis without lita cord comp ression. At C5-C6, there is no definite disc bulge or herniation. No canal stenosis or cord compression. Neura l foramina appear preserved. At C6-C7, there is no disc bulge or herniation. No spinal canal stenosis, cord compression, or defini te neural foraminal narrowing. No abnormal signal seen in the spinal cord. Paravertebral soft tissues are unremarkable. Impression: Moderate degenerative spondylosis, especially the upper to mid cervical spine. Anterior and interbody fusion from C5 to C7, unchanged. Reviewed, dictated and finalized at [facility]. NICAL SME Impression: Moderate degenerative spondylosis, especially the upper to mid cervical spine. Anterior and interbody fusion from C5 to C7, unchanged.
== END 2024-08-07 07:51 | disposition home or self-care (01) ==
PROVIDERS: PCP Family Medicine; Visit Provider Neurological Surgery
DX: M50.30 Other cervical disc degeneration, unspecified cervical region (principal); Z98.1 Arthrodesis status; M47.22 Other spondylosis with radiculopathy, cervical region
CPT/HCPCS: 72141

== ENCOUNTER 2024-08-17 00:32 | Day surgery (SDC) | payer BC, SELFPAY ==
--- NOTE | 2024-08-03 09:51 | PC.NURSE ---
Report to the Outpatient Waiting Room, entrance under the green pavilion located off [facility], at time _9 AM on date __08/17/24 . Planned Procedure Time: __11 AM .? Time changes happen often and if your time is changed the preop area will call you the afternoon before. - You and your visitor will be asked to self-screen and do not enter if you have any COVID symptoms. Please call surgeon if you need to reschedule. - A mask is optional within the hospital at this time. Patients may have clear liquids (water, carbonated beverages, clear teas, apple juice) until 3 hours prior to surgery(8 AM) with a maximum of 20 ounces. - No food from midnight until time of surgery and no smoking. This includes no chewing gum, candy or mints. Take only the following medications with a SIP of water on the morning of surgery: ___ADVAIR INHALER_,BUPROPION,,METOPROLOL DO NOT STOP ANY OF YOUR OTHER PRESCRIPTION MEDICATIONS PRIOR TO SURGERY EXCEPT THE FOLLOWING Medications to discontinue per physician ___HOLD OZEMPIC 10 DAYS PRE OP PER ANESTHESIA LAST DOSE08/07/24. HOLD NAPROXEN 7 DAYS PRE OP PER DR SHAH. LAST DOSE 08/09/24 HOLD ALL VITAMINS AND SUPPLEMENTS 3 DAYS PRE OP.LAST DOSE08/13/24 Please no make-up, nail syriac, hairspray, perfume, deodorant, or body powder the day of surgery.? No jewelry (including any body piercings) or valuables the day of surgery, leave them at home.? Please take a shower or bath the night before, or the morning of, surgery with an antibacterial soap.? Wear comfortable, loose fitting clothing.? Children are encouraged to wear pajamas. - Jewelry must be removed prior to entering the operating room.? Rings and piercings that are not removed may be cut off. - The hospital will not accept responsibility for valuables.? - Please leave all valuables, including medications, at home the day of surgery. If you are going home after surgery, a licensed otr hazmat company driver must drive you home.? - NO public transportation without another adult if you receive anesthesia. - We recommend that an adult stay with you for 24 hours following discharge. - We also recommend that you do not drive, make important decision, drink alcoholic beverages, or take any drugs that were not prescribed by your health care provider for at least 24 hours after your discharge time. Follow any additional instructions given to you from your surgeon. VERBAL AND WRITTEN instructions given to __PATIENT and asked if any additional questions and then verbalized understanding. Patient advised to call surgeon office or pre surgery nurse liaison [phone] if any additional questions.
[2024-08-03 10:07] VITALS: BMI 27.6
[2024-08-03 10:42] VITALS: BP 123/88; PULSE 73; RESP 18; TEMP 36.7; O2SAT 98
[2024-08-17] VITALS (11 sets, daily range): BP systolic 118–145; BP diastolic 63–81; PULSE 65–96; RESP 12–20; TEMP 36.6–36.8; O2SAT 94–100; BMI 27.2
--- NOTE | ~2024-08-17 | XR_ITS ---
INTRAOPERATIVE FLUOROSCOPY: CLINICAL HISTORY: 64 years old Female; ANTERIOR CERVICAL DISCECTOMY AND FUSION C4-5 PROCEDURE COMMENTS: Limited intraoperative fluoroscopy of the cervical spine was performed. CUMULATIVE DOSE: 0.6 mGy FLUOROSCOPY TIME: 5.9 seconds FINDINGS/IMPRESSION: Please refer to operative note for further details. Reviewed, dictated and finalized at location A. [employer]IST
[2024-08-17] MEDS: LACTATED RINGERS 1,000 ML 30 ML IV CONT ×2 (09:10→13:29)
[2024-08-17] MEDS: SCOPOLAMINE 1 MG PATCH 1 PATCH TRANSDERM (09:27)
--- NOTE | 2024-08-17 10:39 | WPDHPUPDATE1 ---
History and Physical Update Update Date/Time: 08/17/24 10:39 History and Physical has been reviewed, including an updated exam of the patient. There are NO changes in the patient's condition. Risks, benefits, and alternatives have been discussed and questions answered. Patient agrees to proceed with procedure.
--- NOTE | 2024-08-17 10:40 | P.HP_ITS ---
H&P: HPI History of Present Illness Date/Time: 08/17/24 10:40 Chief Complaint: left-sided neck, arm pain Narrative: From 04/13: Ms. Anthony is a 64-year-old female with history of hypertension and previous C5-6 and C6-7 ACDF C who presents for evaluation neck pain and left paresthesias. She had her 1st ACDF at C5-6 in the early with Dr. Healy somewhere in [place]. She had ACDF at C6-[address] Tamayo. She did well with these surgeries. About 6 months ago, she started developing pain in left side of her neck that radiates into the shoulder blade and into the anterior chest. She also has paresthesias that radiate down the left arm and all fingers of the hand. She has a sense of weakness in the left arm. She denies any inciting event. Her pain worsens with looking to the left and imp roves with ice. Her primary care physician gave a short course of steroids which were not helpful. She has taking naproxen, but she has had no other conservative treatments. She is otherwise healthy and does not smoke. She does take any blood thinners. 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 From 07/14: Since I saw her last, she has completed physical therapy and had 2 epidural steroid injections, none of which have significantly relieved her symptoms. She continues to have constant pain on the left side of the neck into the left shoulder and shoulder blade with intermittent paresthesias in the left arm. She denies any right-sided symptoms at this time. Review of Systems Review of Systems: All systems reviewed & are unremarkable except as noted in HPI and below PMFSH Past Medical History Medical History Other cervical disc degeneration, unspecified cervical region Prediabetes Pure hypercholesterolemia, unspecified Major depressive disorder, recurrent, in partial remission Mild persistent asthma, uncomplicated HTN (hypertension) Surgical History Surgical History History of laparoscopic appendectomy Status post excisional biopsy 03/22/21 Excisional biopsy of deep right cervical lymph node History of neck surgery S/P oophorectomy H/O umbilical hernia repair S/P colonoscopy S/P laparoscopic cholecystectomy Family History Family History Father Hypertension Diabetes mellitus Skin cancer Lung disease Mother Diabetes mellitus Hypertension Unknown Heart disease Hypertension Allergy Social History Social History Smoking status: Never smoker Alcohol intake: never Substance use: never Substance use type: does not use Do You Feel Safe in your Home?: Yes Lack of Transportation: No Lack of Food: Never True Current Housing: I Have Housing Concerned About Future Housing: No Difficulty Paying Gas/Electric Bills: No Difficulty Paying for Meds: No Currently Unemployed: No Education: High School Diploma/GED Difficulty w/ Childcare or Family Care: No Living arrangements: with family Additional living arrangements comments: [place] Occupation/Education: occupation Gender identity (if verbalized by the patient): Female Sexual Orientation (if Verbalized by the Patient): Straight or Heterosexual Spiritual care concerns: No Meds Home Medications and Allergies Home Medications ?Medication ?Instructions ?Recorded ?Confirmed ?Type albuterol sulfate 90 mcg/actuation See Rx Instructions .Route 12/09/23 08/03/24 Rx aerosol inhaler .COMPLEX #18 grams cetirizine 10 mg tablet (Zyrtec) 10 mg PO DAILY PRN allergy symptoms 03/04/24 08/03/24 History oxdozhvh-fyg-iecpa ac 400 1 tablet PO DAILY 03/04/24 08/17/24 History mcg-calcium carb 500 mg-vit K1 20 mcg tablet (Women's 50 Plus Multivitamin) metoprolol succinate 50 mg 50 mg PO DAILY #90 tabs 03/08/24 08/17/24 Rx tablet,extended release 24 hr alprazolam 0.25 mg tablet 0.25 mg PO BID PRN Anxiety #20 tabs 03/15/24 08/03/24 Rx naproxen 500 mg tablet 500 mg PO DAILY #180 tabs 03/15/24 08/17/24 Rx cyclobenzaprine 10 mg tablet 10 mg PO TID PRN muscle spasm #30 04/13/24 08/03/24 Rx tabs bupropion HCl 300 mg 24 hr tablet, 300 mg PO QAM #90 tabs 05/03/24 08/17/24 Rx extended release fluticasone 250 mcg-salmeterol 50 1 inh inhalation DAILY #180 ea 07/08/24 08/17/24 Rx mcg/dose blistr powdr for inhalation (Advair Diskus) semaglutide 0.25 mg or 0.5 mg (2 0.25 mg subcut WEEKLY 07/14/24 08/17/24 History mg/3 mL) subcutaneous pen injector (Ozempic) chlorthalidone 25 mg tablet 25 mg PO QAM #90 tabs 07/21/24 08/17/24 Rx potassium chloride 20 mEq 20 meq PO DAILY #90 tabs 07/21/24 08/17/24 Rx tablet,extended release(part/cryst) amoxicillin 875 mg tablet 875 mg PO Q12H #14 tabs 08/05/24 08/17/24 Rx Allergies Allergy/AdvReac Type Severity Reaction Status Date / Time No Known Allergies Allergy Verified 08/17/24 09:41 Vital Signs Vital Signs - 24 hr 08/17/24 09:00 Temperature 97.9 F Pulse Rate 68 Respiratory Rate 16 Blood Pressure 123/81 Pulse Oximetry 98 Exam Narrative: Neck pain with turning to left Right-sided cervical incision Unless otherwise stated above, the patient's physical exam is as follows: General: -Well developed and well nourished. No a cute distress. Cooperative with exam. Mental status: -Awake and oriented to person, place, an d time. Affect is normal. -Fund of knowledge appropriate -Recent and remote memory are intact -Attention span and concentration appear normal -Language function is normal -There is no evidence of aphasia in conv ersational speech. Cranial nerves: -CN II: Visual omer full to bedside co nfrontation -CN III, IV, : Pupils equal, round, an d reactive to light; extraocular movements, no ptosis, no nystagmus -CN V: Facial sensation intact in V1 thr ough V3 distributions -CN VII: Face symmetric -CN VIII: Hearing intact to conversation al speech -CN IX, X: Palate elevates symmetrically ; normal phonation -CN XI: Symmetric full strength of yan ocleidomastoid and trapezius muscles -CN XII: Tongue protrudes midline Integumentary: -No obvious skin lesions or masses Motor: -Muscle tone normal without spasticity o f flaccidity. No atrophy. No fasciculations. -No pronator drift -Right upper extremity: deltoid 5/5, bic eps 5/5, triceps 5/5, wrist extensors 5/5, wrist flexors 5/5, intrinsics 5/5 -Left upper extremity: deltoid 5/5, alex ps 5/5, triceps 5/5, wrist extensors 5/5, wrist flexors 5/5, intrinsics 5/5 -Right lower extremity: iliopsoas 5/5, q uadriceps 5/5, hamstrings 5/5, tibialis anterior 5/5, gastroc-soleus 5/5, EHL 5/5 -Left lower extremity: iliopsoas 5/5, qu adriceps 5/5, hamstrings 5/5, tibialis anterior 5/5, gastroc-soleus 5/5, EHL 5/5 Sensory: -Intact to light touch throughout -Normal proprioception throughout Reflexes: -1-2+ DTR's throughout -No Triplett's, clonus, or Babinski bilat erally Musculoskeletal: -Symmetric; no deformities, masses or te nderness; no known fractures -Cervical spine: no tenderness to palpat ion, no pain, and normal cervical spine movements. 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 Anthony is a 64-year-old female with history of previous ACDF at C5-6 and C6-7 presents with 9 months of left-sided neck pain radiating into the left shoulder and shoulder blade with paresthesias involving the left arm which has been resistant to physical therapy and epidural steroid injections. She is neurologically intact on physical exam today. I reviewed her MRI cervical spine which shows degenerative disc disease at C3-4 and C4-5 with severe left neuroforaminal stenosis at C4-5. She had x-rays that do show a spondylolisthesis at C4-5 in flexion that reduces in extension. Given that she has failed conservative treatments, I have offered her surgery in the form of anterior cervical diskectomy and fusion at C4-5. We discussed surgery in detail including risks, expected recovery, and restrictions after surgery. She is amenable to this and would like to proceed as discussed.
--- NOTE | 2024-08-17 11:00 | P.PNAN_ITS ---
Anes - Initial Pre Proc Eval Procedure: Operation Date: 08/17/24 11:00 Proposed Procedures p Anterior Cervical Discectomy and Fusion C4-5 - Zulema Beth MD Date/Time: 08/17/24 11:00 Surgeon: Zulema Beth MD Pre Op Diagnosis: adjacent segment disease cervical spine C4-5, Patient Data Age: 64 Gender: F Height: 1.7 m Weight: 78.9 kg Last Vital Signs Temp 97.9 F 08/17/24 09:00 Pulse 68 08/17/24 09:00 Resp 16 08/17/24 09:00 BP 123/81 08/17/24 09:00 Pulse Ox 98 08/17/24 09:00 O2 Del Method Room Air 08/03/24 10:42 Allergies Allergy/AdvReac Type Severity Reaction Status Date / Time No Known Allergies Allergy Verified 08/17/24 09:41 Home Medications ?Medication ?Instructions ?Recorded ?Confirmed ?Type albuterol sulfate 90 mcg/actuation See Rx Instructions .Route 12/09/23 08/03/24 Rx aerosol inhaler .COMPLEX #18 grams cetirizine 10 mg tablet (Zyrtec) 10 mg PO DAILY PRN allergy symptoms 03/04/24 08/03/24 History wssltnfh-qbr-vwdcd ac 400 1 tablet PO DAILY 03/04/24 08/17/24 History mcg-calcium carb 500 mg-vit K1 20 mcg tablet (Women's 50 Plus Multivitamin) metoprolol succinate 50 mg 50 mg PO DAILY #90 tabs 03/08/24 08/17/24 Rx tablet,extended release 24 hr alprazolam 0.25 mg tablet 0.25 mg PO BID PRN Anxiety #20 tabs 03/15/24 08/03/24 Rx naproxen 500 mg tablet 500 mg PO DAILY #180 tabs 03/15/24 08/17/24 Rx cyclobenzaprine 10 mg tablet 10 mg PO TID PRN muscle spasm #30 04/13/24 08/03/24 Rx tabs bupropion HCl 300 mg 24 hr tablet, 300 mg PO QAM #90 tabs 05/03/24 08/17/24 Rx extended release fluticasone 250 mcg-salmeterol 50 1 inh inhalation DAILY #180 ea 07/08/24 08/17/24 Rx mcg/dose blistr powdr for inhalation (Advair Diskus) semaglutide 0.25 mg or 0.5 mg (2 0.25 mg subcut WEEKLY 07/14/24 08/17/24 History mg/3 mL) subcutaneous pen injector (Ozempic) chlorthalidone 25 mg tablet 25 mg PO QAM #90 tabs 07/21/24 08/17/24 Rx potassium chloride 20 mEq 20 meq PO DAILY #90 tabs 07/21/24 08/17/24 Rx tablet,extended release(part/cryst) amoxicillin 875 mg tablet 875 mg PO Q12H #14 tabs 08/05/24 08/17/24 Rx Laboratory Tests 08/17/24 09:10 Blood Type A Positive Antibody Screen Negative Patient hx anesthesia problems: post op nausea/vomiting Family hx anesthesia problems: none Results Review: All pre-operative results and documents have been reviewed as part of the pre- operative evaluation. [facility] Past Medical History Medical History Other cervical disc degeneration, unspecified cervical region Prediabetes Pure hypercholesterolemia, unspecified Major depressive disorder, recurrent, in partial remission Mild persistent asthma, uncomplicated HTN (hypertension) Surgical History Surgical History History of laparoscopic appendectomy Status post excisional biopsy 03/22/21 Excisional biopsy of deep right cervical lymph node History of neck surgery S/P oophorectomy H/O umbilical hernia repair S/P colonoscopy S/P laparoscopic cholecystectomy Family History Family History Father Hypertension Diabetes mellitus Skin cancer Lung disease Mother Diabetes mellitus Hypertension Unknown Heart disease Hypertension Allergy Social History Social History Smoking status: Never smoker Alcohol intake: never Substance use: never Substance use type: does not use Do You Feel Safe in your Home?: Yes Lack of Transportation: No Lack of Food: Never True Current Housing: I Have Housing Concerned About Future Housing: No Difficulty Paying Gas/Electric Bills: No Difficulty Paying for Meds: No Currently Unemployed: No Education: High School Diploma/GED Difficulty w/ Childcare or Family Care: No Living arrangements: with family Additional living arrangements comments: [place] Occupation/Education: occupation Gender identity (if verbalized by the patient): Female Sexual Orientation (if Verbalized by the Patient): Straight or Heterosexual Spiritual care concerns: No Anes - Eval Final PreProcedure Day of Procedure 08/17/24 11:00 Patient weight: normal Heart: regular rate and rhythm Lungs: clear to auscultation Airway: Mallampati scale class II Neurological: alert and oriented Last oral intake: >/= 8 hours ASA classification: II Emergent: no Anesthetic plan: proceed Anesthesia type and monitoring: general ETT and standard monitoring Results Review: All pre-operative results and documents have been reviewed as part of the pre- operative evaluation. Informed Consent: The patient's anesthetic plan and its attendant risks and benefits were discussed with the patient/family/POA. Questions were solicited and answers provided to the satisfaction of the patient/family/POA.
[2024-08-17] MEDS: ceFAZolin 2 GM/D5W 50 ML 2 GM/50 ML BAG IVPB (11:09)
[2024-08-17] MEDS: BUPIVACAINE/EPINEPHRINE 0.5% 30 ML VIAL INFILTRATE (11:55)
--- NOTE | 2024-08-17 13:28 | PM.OP ---
Procedure Note - Brief Procedure Note - Brief Date of procedure: 08/17/24 adjacent segment disease cervical spine C4-5, Post-op diagnosis: Same Procedure performed: ACDF C4-5 Surgeon: Zulema Beth MD Pipeline Construction Inspector: Raimundo Anesthesia: GETA Findings: ACDF C4-5 without complication Estimated blood loss (mL): 10 Drains: No Packing: No Pathology: None sent Complications: None Condition: Stable Disposition: PACU
--- NOTE | 2024-08-17 13:33 | P.OP_ITS ---
Procedure Note - Detailed Date of Procedure 08/17/24 Pre-op Diagnosis adjacent segment disease cervical spine C4-5, Post-op Diagnosis Same Procedure Performed 1. Anterior cervical diskectomy C4-5 2. Anterior cervical arthrodesis C4-5 with i-Factor 3. Anterior cervical interbody placement at C4-5 4. Use of microscope for microsurgical dissection 5. Use of C-arm for fluoroscopy Surgeon Zulema Beth MD Anesthesia General Description of Procedure The patient was taken to the operating room and was transferred to the operating table in the supine position. General anesthesia was induced. Pressure points were appropriately padded, and compression devices were placed on the patient's calves. A shoulder roll was placed. The appropriate level was confirmed with the C-arm XR imaging. The patient was prepped and draped in usual sterile fashion. Perioperative antibiotics were given. Time out was performed. Local anesthesia was injected into the planned incision site. A horizontal incision was made with a 10-blade scalpel on the right side of the neck. The subcutaneous tissue was undermined above the platysma with the Metzenbaum scissors. The platysma was sharply opened horizontally. Bleeding was controlled with the bipolar. The avascular plane to the spine was dissected sharply. The anterior border of the spine was located and exposed with sharp and blunt dissection. Due to her two previous surgeries, there were a fair amount of scar tissue and adhesions that required additional time to safely dissect. A spinal needle was used to localize the C4-5 disc space; this was confirmed on fluoroscopy. The longus coli muscles were elevated bilaterally with a bovie. Once the C4-5 disc and vertebral bodies and adjacent intervertebral discs were adequately exposed, self-retaining retractors were placed. [place] pins were placed in C4 and C5. The disc was removed with a combination of currettes and kerrisons, and the posterior longitudinal ligament was opened until the neuroforamen bilaterally were adequately decompressed. Interbody trial instruments were used to determine the appropriate size for the prosthetic vertebral interbody cage. Hemostasis was achieved in the disc space. An 6mm interbody was filled with i-Factor and placed at C4-5. A 10mm plate was placed. Lan Engineer holes were made with the high-speed drill. Four 14mm screws were placed and locked. The [place] pins were removed, and bone wax was used for hemostasis. Xrays were obtained to confirm accurate hardware placement. The surgical cavity was copiously irrigated; appropriate hemostasis was verified; and there was no evidence of dural tear/CSF leak. The platysma was closed with interrupted 3-0 Vicryl, followed by interrupted 3-0 Vicryl for the dermis, and 4-0 running subcuticular monocryl for the skin. Dermabond was placed. The patient was extubated, transferred to the bed, and taken to the PACU without incident. Billing codes 93316, 75014, [id number], 55343 Estimated Blood Loss 10 Drains No Packing No Pathology None sent Complications None Condition Stable Disposition PACU [facility] Billing Surgery - Charge Forward: Surgery Billing
[2024-08-17] MEDS: fentaNYL CITRATE INJ (*CRX) 100 MCG/2 ML VIAL 25 MCG IV PUSH ×4 (13:52→14:19)
[2024-08-17] MEDS: ONDANSETRON INJ 4 MG/2 ML VIAL IV PUSH (14:00)
[2024-08-17] MEDS: diphenhydrAMINE HCl INJ 50 MG/ML VIAL 12.5 MG IV PUSH (15:41)
--- OUTSIDE RECORDS SUMMARY | 2024-08-18 20:52 | XMS_ITS | Patient Health Summary ---
Author Organization [facility] Address [address] [facility] [address] [place] [address] Care Team Providers Care Physiotherapy Aide Name Role Phone Pawan Ramírez MD Primary Care Provider [phone] Note from [facility],non-owned Affiliates and Associated Physician Practices is amultiple site organization consisting of ambulatory clinics and hospital sitesin [place], [place], [place] and [place]. This disclosure is being madepursuant to the Care Everywhere program and may not contain all information available regarding this patient. Last updated 18.[facility] Allergies No known active allergies Medications * Be aware that medications may not be up to date on this document. Alwaysverify current medications with the patient. * metoprolol succinate XL 24hr (TOPROL XL) 50 MG tablet(Started 11/07/2018) Take 50 mg by mouth once daily * buPROPion XL 24hr (WELLBUTRIN-XL) 300 MG tablet(Started 10/04/2018) TK 1 T PO QD IN THE MORNING * chlorthalidone (HYGROTON) 25 MG tablet(Started 10/04/2018) TK 1 T PO QD IN THE MORNING * naproxen (NAPROSYN) 500 MG tablet(Started 10/04/2018) 2 times daily as needed * fluticasone-salmeterol (ADVAIR DISKUS) 250-50 MCG/DOSE inhaler Inhale 1 puff by mouth 2 times daily * Estradiol (DIVIGEL TD) * albuterol HFA (PROVENTIL;VENTOLIN;PROAIR) 108 (90 Base) MCG/ACT inhaler Inhale 2 puffs by mouth every 6 hours as needed * Nerve Stimulator (TENS THERAPY PAIN RELIEF) SHANNON(Started 12/22/2018) Use 1 device as needed (apply to posterior neck and shoulder region) * HYDROcodone-acetaminophen (NORCO) 5-325 MG tablet(Started 11/02/2020) Take 1 (one) tablet by mouth every 4 hours as needed Active Problems Problem Noted Date Diagnosed Date Cervical radiculopathy 10/17/2020 Social History Tobacco Use Types Packs/Day Years Used Date Smoking Tobacco: Never Smokeless Tobacco: Never Alcohol Use Standard Drinks/Week Comments No 0 (1 standard drink = 0.6 oz pur e alcohol) Sex and Gender Information Value Date Recorded Sex Assigned at Not on file Gender Identity Not on file Sexual Orientation Not on file Last Filed Vital Signs Vital Sign Reading Time Taken Comments Blood Pressure 126/76 04/15/2021 2:33 PM CDT Pulse 82 04/15/2021 2:33 PM CDT Temperature 36.5 ??C (97.7 ??F) 04/15/2021 2:33 PM CD T Respiratory Rate 20 11/19/2020 11:27 AM CDT Oxygen Saturation 98% 04/15/2021 2:33 PM CDT Inhaled Oxygen Concentration - - Weight 93.4 kg (206 lb) 04/15/2021 2:33 PM CDT Height 170.2 cm (5' 7 ) 04/15/2021 2:33 PM CDT Body Mass Index 32.26 04/15/2021 2:33 PM CDT Medical Devices Implanted Type Area Basket Patcher Device Identifier Shelf Expiration Date Model / Serial / Lot Spcr Algrf [id number] Spne Crv - [id number] Implanted:Qty : 1 on 11/01/2020 by Bala Tamayo MD at [facility] Spine Cervical [employer] 04/20/2023 [id number] / [id number] / [id number] Screw Pk2 4.0x15 Radha Canela Implanted:Qty : 1 on 11/01/2020 by Bala Tamayo MD at [facility] Spine Cervical [employer] 08/09/2023 [id number] / / [id number] Screw Pk2 4.0x15 Slf-Dr Canela Implanted:Qty : 1 on 11/01/2020 by Bala Tamayo MD at [facility] Spine Cervical [employer] 08/09/2023 [id number] / / [id number] Plate Sds 21mm Ti Strl Implanted:Qty : 1 on 11/01/2020 by Bala Tamayo MD at [facility] Spine Cervical [employer] 08/27/2023 [id number] / / [id number] Explanted Type Area Basket Patcher Device Identifier Shelf Expiration Date Model / Serial / Lot Plate Sds 19mm Ti Strl Explanted:Qty: 1 on 11/01/2020 by Bala Tamayo MD at [facility] Spine Cervical [employer] 08/22/2023 [id number] / / [id number] Procedures * XR CERVICAL SPINE 4 OR 5VW(Performed 04/15/2021) Performed for Status post cervical spinal fusion * CARDIAC RHYTHM STRIP ORDER(Performed 11/05/2020) * BASIC METABOLIC PANEL (CALCIUM TOTAL)(Performed 11/02/2020) Performed for Cervical radiculopathy * CBC W AUTO DIFFERENTIAL(Performed 11/02/2020) Performed for Cervical radiculopathy * CT CERVICAL SPINE WO CONTRAST(Performed 11/01/2020) Performed for Cervical radiculopathy * FL CHAI SURGERY(Performed 11/01/2020) Performed for Pain * ENDOTRACHEAL TUBE NOTE(Performed 11/01/2020) * DISCECTOMY WITH FUSION ANTERIOR CERVICAL (ACDF)(Performed 11/01/2020) Performed for Diagnosis unknown * BLOOD TYPE VERIFICATION(Performed 11/01/2020) * TYPE + SCREEN PANEL(Performed 11/01/2020) * XR CHEST 2VW(Performed 10/30/2020) Performed for Pre-op testing, Cervical radiculopathy * EKG 12-LEAD(Performed 10/30/2020) Performed for Pre-op testing, Cervical radiculopathy * COMPREHENSIVE METABOLIC PANEL(Performed 10/30/2020) Performed for Pre-op testing, Cervical radiculopathy * CBC W AUTO DIFFERENTIAL(Performed 10/30/2020) Performed for Pre-op testing, Cervical radiculopathy * PT-INR(Performed 10/30/2020) Performed for Preop examination * PTT(Performed 10/30/2020) Performed for Preop examination * XR CERVICAL SPINE 4 OR 5VW(Performed 08/27/2020) Performed for Cervical radiculopathy * XR CERVICAL SPINE 4 OR 5VW(Performed 12/22/2018) Performed for DDD (degenerative disc disease), cervical Results * XR CERVICAL SPINE 4 OR 5VW (04/15/2021 2:09 PM CDT) Only the most recent of3 resultswithin the time period is included. Anatomical Region Laterality Modality Spine Radiographic Ca ging 04/15/2021 3:21 PM CDT Impressions 04/15/2021 3:23 PM CDT Postop changes as described. Degenerative changes as described. Neural foraminal narrowing as described. *Reading Radiologist: Aayush Becker on 04/15/2021 at 3:23 PM Narrative 04/15/2021 3:23 PM CDT Cervical spine 5 views INDICATION: Neck pain. Fusion. FINDINGS: Since the old exam, there has been anterior fusion at C6-7 with plate and screws and interbody fusion device. There is prior fusion at C5-6. There is no evidence of fracture. There is no subluxation. The remaining disc spaces are well-maintained. The prevertebral soft tissues and predental space are normal. There are degenerative changes of the facet joints and uncovertebral joints. There is neural foraminal narrowing on the right at C3-4 and C6-7. There is no foraminal narrowing on the left at C3-4, C5-6 and C6-7. Procedure Note Aayush Becker MD - 04/15/2021 Cervical spine 5 views INDICATION: Neck pain. Fusion. FINDINGS: Since the old exam, there has been anterior fusion at C6-7 with plate and screws and interbody fusion device. There is prior fusion at C5-6. There is no evidence of fracture. There is no subluxation. The remaining disc spaces are well-maintained. The prevertebral soft tissues and predental space are normal. There are degenerative changes of the facet joints and uncovertebral joints. There is neural foraminal narrowing on the right at C3-4 and C6-7. There is no foraminal narrowing on the left at C3-4, C5-6 and C6-7. IMPRESSION Postop changes as described. Degenerative changes as described. Neural foraminal narrowing as described. *Reading Radiologist: Aayush Becker on 04/15/2021 at 3:23 PM Bala Tamayo MD DIAGNOSTIC IMAGI NG ORDERABLES * CARDIAC RHYTHM STRIP ORDER (11/05/2020 6:44 PM CDT) Narrative 11/05/2020 6:44 PM CDT Ordered by an unspecified provider. Scanned Document CARDIAC SERVICES ORD ERABLES * (ABNORMAL) CBC W AUTO DIFFERENTIAL (11/02/2020 2:44 AM CDT) Only the most recent of2 resultswithin the time period is included. WBC 12.1(H) 4.4 - 10.7 x10E9/L 11/02/2020 4:04 AM CDT [facility] WBC Corrected 11/02/2020 4:04 AM CDT [facility] RBC 3.91 3.80 - 5.20 x10E12/L 11/02/2020 4:04 AM CDT [facility] Hemoglobin 11.8(L) 12.0 - 15.6 gm/dL 11/02/2020 4:04 AM CDT [facility] Hematocrit 35.8(L) 35.9 - 45.5 % 11/02/2020 4:04 AM CDT [facility] MCV 91.6 80.7 - 98.3 fl 11/02/2020 4:04 AM CDT [facility] MCH 30.2 26.7 - 34.0 pg 11/02/2020 4:04 AM [facility] MCHC 33.0 30.8 - 35.9 gm/dL 11/02/2020 4:04 AM [facility] Platelet Count 253 153 - 416 x10E9/L 11/02/2020 4:04 AM [facility] RDW-CV 13.8 12.1 - 14.9 % 11/02/2020 4:04 AM [facility] MPV 10.2 9.4 - 12.9 fl 11/02/2020 4:04 AM [facility] Neutrophils % 89.4(H) 44.0 - 73.0 % 11/02/2020 4:04 AM [facility] Lymphocytes % 6.6(L) 20.0 - 43.0 % 11/02/2020 4:04 AM [facility] Monocytes % 3.5(L) 5.0 - 13.0 % 11/02/2020 4:04 AM [facility] Eosinophils % 0.0 0.0 - 6.0 % 11/02/2020 4:04 AM [facility] Basophils % 0.1 0.0 - 2.0 % 11/02/2020 4:04 AM [facility] Immature Granulocytes 0.4 0 - 1 % 11/02/2020 4:04 AM [facility] Neutrophil Absolute 10.82(H) 2.01 - 7.14 x10E9/L 11/02/2020 4:04 AM [facility] Lymphocytes Absolute 0.80(L) 1.07 - 3.94 x10E9/L 11/02/2020 4:04 AM [facility] Monocytes Absolute 0.42 0.26 - 1.07 x10E9/L 11/02/2020 4:04 AM [facility] Eosinophils Absolute 0.00 0 - 0.47 x10E9/L 11/02/2020 4:04 AM [facility] Basophils Absolute 0.01 0 - 0.08 x10E9/L 11/02/2020 4:04 AM [facility] Immature Granulocytes Absolute 0.05 0.00 - 0.06 x10E9/L 11/02/2020 4:04 AM [facility] nRBC Auto 0 /100 WBC 11/02/2020 4:04 AM CDT [facility] Blood BLOOD SPECIMEN / Unknown Lab Venipuncture / Unknown 11/02/2020 2:44 AM CDT 11/02/2020 3:57 AM CDT Gricel Monge SERVICE DISPATCHER-ENERGY DIRECTOR LAB - HE MATOLOGY ORDERABLES [facility] [address] [place] [address] * (ABNORMAL) BASIC METABOLIC PANEL (CALCIUM TOTAL) (11/02/2020 2:44 AM CDT) Glucose 128(H) 70 - 105 mg/dL 11/02/2020 4:25 AM CDT [facility] Sodium 136 136 - 145 mmol/L 11/02/2020 4:25 AM CDT [facility] Potassium 3.8 3.5 - 5.1 mmol/L 11/02/2020 4:25 AM CDT [facility] Chloride 100 98 - 107 mmol/L 11/02/2020 4:25 AM CDT [facility] CO2 25 23 - 31 mmol/L 11/02/2020 4:25 AM CDT [facility] Calcium 8.6 8.4 - 10.4 mg/dL 11/02/2020 4:25 AM CDT [facility] Anion Gap 11 8 - 18 mmol/L 11/02/2020 4:25 AM CDT [facility] Comment:Attention clinician: Reference Range change. BUN 16 9.8 - 20.1 mg/dL 11/02/2020 4:25 AM CDT [facility] Creatinine 0.92 0.57 - 1.11 mg/dL 11/02/2020 4:25 AM CDT [facility] eGFR by MDRD >60 >60 mL/min/1.7 3m2 11/02/2020 4:25 AM CDT [facility] eGFR by MDRD >60 >60 mL/min/1.7 3m2 11/02/2020 4:25 AM CDT [facility] Blood BLOOD SPECIMEN / Unknown Lab Venipuncture / Unknown 11/02/2020 2:44 AM CDT 11/02/2020 3:57 AM CDT Gricel Monge SERVICE DISPATCHER-ENERGY DIRECTOR LAB - CH EMISTRY ORDERABLES [facility] [address] [place] [address] * CT CERVICAL SPINE WO CONTRAST (11/01/2020 2:46 PM CDT) Anatomical Region Laterality Modality Spine Computed Tomogra phy 11/01/2020 4:53 PM CDT Impressions 11/01/2020 5:04 PM CDT 1. ??New anterior metallic and bony fusion of C6-C7. 2. ??Chronic solid bony fusion of C5-C6 *Reading Radiologist: Jessica Sol on 11/01/2020 at 5:04 PM Narrative 11/01/2020 5:[address] cervical spine, noncontrast DATE: 11/01/2020. INDICATION: Postop anterior cervical discectomy and fusion. TECHNIQUE: Multidetector nonenhanced cervical spine CT with triplanar reformations. COMPARISONS: Plain films from 12/22/2018. FINDINGS: The C5 and C6 vertebral bodies are chronically fused by bone. ??At C6-C7 there is new anterior metallic fusion including a bone graft in the interspace. ??There are scattered gas droplets in the right anterior neck near the operative site but no space-occupying hematoma. ??There is some residual mild mass effect on the adjacent airway. ??The nearby thyroid is small and normal. ??There is also small amount of gas in the prevertebral space near the operative site. At C6-C7 the central canal appears patent. ??Neural foramina also appear patent and with small uncovertebral joint spurs which are greater on the left. At C5-C6 the central canal is mildly narrowed due to disc spur complex. Minimum midline AP canal diameter is 8 to 9 mm. ??Neural foramina are mildly narrowed due to spurs. At C4-C5 there is a mild chronic disc spur complex without significant central stenosis. ??The left neural foramen is narrowed due to osteophytes. At C3-C4 there is minimal disc spur complex. ??Facets are hypertrophied and there is mild narrowing of the right neural foramen due to spurs. At C2-C3 there are no significant findings. Procedure Note Jessica Sol MD - 11/01/2020 CT cervical spine, noncontrast DATE: 11/01/2020. INDICATION: Postop anterior cervical discectomy and fusion. TECHNIQUE: Multidetector nonenhanced cervical spine CT with triplanar reformations. COMPARISONS: Plain films from 12/22/2018. FINDINGS: The C5 and C6 vertebral bodies are chronically fused by bone. At C6-C7 there is new anterior metallic fusion including a bone graft in the interspace. There are scattered gas droplets in the right anterior neck near the operative site but no space-occupying hematoma. There is some residual mild mass effect on the adjacent airway. The nearby thyroid is small and normal. There is also small amount of gas in the prevertebral space near the operative site. At C6-C7 the central canal appears patent. Neural foramina also appear patent and with small uncovertebral joint spurs which are greater on the left. At C5-C6 the central canal is mildly narrowed due to disc spur complex. Minimum midline AP canal diameter is 8 to 9 mm. Neural foramina are mildly narrowed due to spurs. At C4-C5 there is a mild chronic disc spur complex without significant central stenosis. The left neural foramen is narrowed due to osteophytes. At C3-C4 there is minimal disc spur complex. Facets are hypertrophied and there is mild narrowing of the right neural foramen due to spurs. At C2-C3 there are no significant findings. IMPRESSION 1. New anterior metallic and bony fusion of C6-C7. 2. Chronic solid bony fusion of C5-C6 *Reading Radiologist: Jessica Sol on 11/01/2020 at 5:04 [address] MD CT ORDERABLES * FL CHAI SURGERY (11/01/2020 1:00 PM CDT) Narrative [facility] - 11/01/2020 1:41 PM CDT For details of this study, please see the providers note. Bala Tamayo MD FLUOROSCOPY MARITZA TENORIO Performing Organization Address City/[facility]/ZIP Co de Phone Number [facility] [address] [place] [address] * ETT LINE PERFORMABLE (11/01/2020 12:00 PM CDT) Narrative Becca Daigle APRN-CRNA - 11/01/2020 12:00 PM CDT Becca Daigle APRN-CRNA ? 11/01/2020 12:01 PM Endotracheal Tube Placement: ? Patient Location: OR. Intubation Event Date/Time: ??11/01/2020 11:22 AM Procedure: intubation ([id number]). Procedure Section: ?? Sedation: under general anesthesia. Indications for Airway Management: ??anesthesia Induction: modified rapid sequence Patient Position: ??sniffing and supine Mask Ventilation: not attempted. Blade Type: Video (elective glidescope intubation) Blade Size: 3 Laryngoscopy View: grade 1 (full cords) Intubation Adjuncts: stylet and video laryngoscope Tube: nerve integrity monitoring tube Placement: oral Tube type: cuff - inflated Tube Size (MM): 7 Depth of Insertion (CM): 21 Measured From: lips Cuff volume (mL): ??8 Cuff Inflated With: air Number of Attempts: 1. Placement Verified By: direct visualization, bilateral breath sounds, chest auscultation and CO2 monitor Tube secured with: ??adhesive tape. Dentition unchanged? ??Yes Difficult Airway? ??No. Procedure Start Time: 11/01/2020 11:22 AM. Staff Section ?? Anesthesia Provider: Becca Daigle APRN-CRNA, Performed the procedure Dayna Montilla MD GENERAL ANESTHESIA O RDERABLES * BLOOD TYPE VERIFICATION (11/01/2020 8:33 AM CDT) ABO Rh A POS 11/01/2020 9:2 6 AM CDT [facility] Blood Bank BLOOD SPECIMEN / Unknown Venipuncture / Unknown 11/01/2020 8:33 AM CDT 11/01/2020 8:36 AM CDT Bala Tamayo MD LAB - BLOOD BANK ORDERABLES Performing Organization Address City/State/[facility] Co de Phone Number [facility] [address] [phone] * TYPE + SCREEN PANEL (11/01/2020 8:29 AM CDT) ABO Rh A POS 11/01/2020 9:26 AM CDT [facility] Comment:No history; collect retype. Antibody Screen NEG 9:26 AM CDT [facility] Blood Bank BLOOD SPECIMEN / Unknown Venipuncture / Unknown 11/01/2020 8:29 AM CDT 11/01/2020 8:31 AM CDT Bala Tamayo MD LAB - BLOOD BANK ORDERABLES Performing Organization Address [facility] Co de Phone Number [facility] [address] [place] [id number] [place] [address] * XR CHEST 2VW (10/30/2020 10:50 AM CDT) Anatomical Region Laterality Modality Chest Radiographic Ca ging 10/30/2020 10:5 3 AM CDT Impressions 10/30/2020 10:54 AM CDT Clear lungs. *Reading Radiologist: Efrain Saleem on 10/30/2020 at 10:54 AM Narrative 10/30/2020 10:54 AM CDT Chest X-ray 2 views. HISTORY: Preop. 2 views of the chest show heart size in the normal range with normal vessels. Lungs are clear. Procedure Note Efrain Saleem MD - 10/30/2020 Chest X-ray 2 views. HISTORY: Preop. 2 views of the chest show heart size in the normal range with normal vessels. Lungs are clear. IMPRESSION Clear lungs. *Reading Radiologist: Efrain Saleem on 10/30/2020 at 10:54 AM Bala Tamayo MD DIAGNOSTIC IMAGI NG ORDERABLES * EKG 12-LEAD (10/30/2020 10:25 AM CDT) Pathologist [facility] Ventricular Rate 60 BPM [facility] Atrial Rate 60 BPM [facility] P-R Interval 142 ms [facility] QRS Duration ms 80 ms [facility] Q-T Interval ms 440 ms [facility] QTC Calculation (Bezet) 440 ms [facility] Calculated P [place] 27 degrees [facility] Calculated R [place] 67 degrees [facility] Calculated T [place] 38 degrees [facility] Interpretation EKG NORMAL SINUS RHYTHM NONSPECIFIC T WAVE ABNORMALITY ABNORMAL ECG NO PREVIOUS ECGS AVAILABLE Confirmed by Ankur Rankin ([id number]) on 11/01/2020 6:36:04 AM [facility] 10/30/2020 10:2 5 AM CDT 11/01/2020 6:36 AM CDT Bala Tamayo MD ECG ORDERABLES Performing Organization Address [facility] Co de Phone Number [facility] * PTT (10/30/2020 10:20 AM CDT) [facility] PTT 37.5 23.0 - 38.4 sec 10/30/2020 10:54 AM CDT [facility] Blood BLOOD SPECIMEN / Unknown Venipuncture / Unknown 10/30/2020 10:20 AM CDT 10/30/2020 10:32 AM CDT Narrative [facility] - 10/30/2020 10:54 AM CDT Heparin Therapeutic Range for PTT: ??71.0 - 109.0 seconds. Bala Tamayo MD LAB - COAGULATIO N ORDERABLES [facility] [address] [place] [address] * PT-INR (10/30/2020 10:20 AM CDT) [facility] PT 12.3 12.1 - 14.8 sec 10/30/2020 10:53 AM CDT [facility] INR 0.9 0.9 - 1.1 10/30/2020 10:53 AM CDT [facility] Blood BLOOD SPECIMEN / Unknown Venipuncture / Unknown 10/30/2020 10:20 AM CDT 10/30/2020 10:32 AM CDT Narrative [facility] - 10/30/2020 10:53 AM CDT Conventional Warfarin Anticoagulant Therapy: INR Reference Range: ??2.0-3.0 Intensive Warfarin Anticoagulant Therapy: INR Reference Range: ? 2.5-3.5 Bala Tamayo MD LAB - COAGULATIO N ORDERABLES [facility] [address] [place] [address] * (ABNORMAL) COMPREHENSIVE METABOLIC PANEL (10/30/2020 10:20 AM CDT) [facility] Glucose 97 70 - 105 mg/dL 10/30/2020 10:59 [facility] Sodium 139 136 - 145 mmol/L 10/30/2020 10:59 AM CDT [facility] Potassium 3.6 3.5 - 5.1 mmol/L 10/30/2020 10:59 AM CDT [facility] Chloride 105 98 - 107 mmol/L 10/30/2020 10:59 AM CDT [facility] CO2 28 23 - 31 mmol/L 10/30/2020 10:59 AM CDT [facility] Calcium 8.9 8.4 - 10.4 mg/dL 10/30/2020 10:59 AM [facility] Anion Gap 6(L) 8 - 18 mmol/L 10/30/2020 10:59 AM CDT [facility] Comment:Attention clinician: ??Reference Range change. BUN 19 9.8 - 20.1 mg/dL 10/30/2020 10:59 AM CDT [facility] Creatinine 1.05 0.57 - 1.11 mg/dL 10/30/2020 10:59 AM CDT [facility] Alkaline Phosphatase 58 40 - 150 U/L 10/30/2020 10:59 AM CDT [facility] Comment:Attention clinician: ??Reference Range change. ALT 16 0 - 61 U/L 10/30/2020 10:59 AM CDT [facility] AST 16 5 - 34 U/L 10/30/2020 10:59 AM CDT [facility] Protein Total 7.1 6.4 - 8.3 gm/dL 10/30/2020 10:59 AM CDT [facility] Albumin 4.3 3.5 - 5.2 gm/dL 10/30/2020 10:59 AM CDT [facility] Bilirubin Total 0.4 0.2 - 1.2 mg/dL 10/30/2020 10:59 AM CDT [facility] Comment:Attention clinician: ??Reference Range change. eGFR by MDRD 54(L) >60 mL/min/1.7 3m2 10/30/2020 10:59 AM CDT [facility] eGFR by MDRD >60 >60 mL/min/1.7 3m2 10/30/2020 10:59 AM CDT [facility] Blood BLOOD SPECIMEN / Unknown Venipuncture / Unknown 10/30/2020 10:20 AM CDT 10/30/2020 10:32 AM CDT Bala Tamayo MD LAB - CHEMISTRY ORDERABLES Performing Organization Address [facility]/State/ZIP Co de Phone Number [facility] [address] [place] [address] Care Teams Physiotherapy Aide Relationship Specialty Start Date End Date Pawan Ramírez MD [address] [place] [id number] PCP - General 11/24/18
--- OUTSIDE RECORDS SUMMARY | 2024-08-18 20:52 | XMS_ITS | Data Portability ---
Author Organization [facility] Address [address] [place] [address] [place] [address] Care Team Providers Care Pockets And Pieces Necktie Operator Name Role Phone SHELBY ELY Primary Care Provider [phone] Assessment Encounter Date Assessment Date Assessment LastModified by Organization Details LastModified Time 10/02/2022 10/02/2022 Annual gynecological exam performed. Patient will come back in a year unless there are new symptoms. [email or web address] Not available 10/02/2022 09:57:03 Plan of Treatment Reminders Order Date Submit Date Provider Last Modified By Organization Details Last Modified Time Details Appointments None recorded. Lab None recorded. Referral None recorded. Procedures None recorded. Surgeries None recorded. Imaging MAMMO, screening, bilateral 2022 023 [facility], [address], [place], [address], 3 05:01:00 DEXA, axial skeleton + vertebral fracture assessment 2022 023 [facility], [address], [place], [address], 3 05:01:00 Medication Orders None recorded. Patient TargetsNo targets recorded. Patient InstructionsNo instructions recorded. Reason for Referral None Reported. Problems Name Problem SNOMED Code Status Onset Date Resolution Date Notes Provider Name and Address Organization Details Recorded Time Microscop ic hematuria 980875531 Active 2012 MICROSCOPI C HEMATURIA; Recorded Elsewhere: No Locatio n: [facility] Kristal rce: EHR Chroni c: N Practice ID: 0001 Billa ble Time: 08:30:00 AM Not Available [facility] 0 14:40:02 Adult health examinati on Active 2011 Routine Medical Exam;Recor ded Elsewhere: No Locatio n: [facility] rce: EHR Chroni c: N Practice ID: 0001 Billa ble Time: 09:30:00 AM Not Available [facility] 0 14:40:02 Screening for malignant neoplasm of rectum Active 2016 Encounter for screening for malignant neoplasm of rectum;Rec orded Elsewhere: No Locatio n: [facility] rce: EHR Chroni c: N Practice ID: 0001 Billa ble Time: 08:45:00 AM Not Available [facility] 0 14:40:02 Specializ ed medical examinati on Active 2011 Gynecologi maryjo Examinatio n;Recorded Elsewhere: No Locatio n: [facility] rce: EHR Chroni c: N Practice ID: 0001 Billa ble Time: 09:30:00 AM Not Available [facility] 0 14:40:02 Screening for malignant neoplasm of cervix Active 2016 Screening for malignant neoplasms of the cervix;Rec orded Elsewhere: No Locatio n: [facility] rce: EHR Chroni c: N Practice ID: 0001 Billa ble Time: 08:45:00 AM Not Available [facility] 0 14:40:02 Body mass index 30+ - obesity 941828532 Active 2016 Body mass index (BMI) 32.0-32.9, adult;Abdi rded Elsewhere: No Locatio n: [facility] rce: EHR Chroni c: N Practice ID: 0001 Billa ble Time: 08:45:00 AM Not Available [facility] 0 14:40:02 Atypical squamous cells of undetermi deejay significa nce on cervical Papanicol aou smear 872623167 Active 2014 Papanicola ou smear of cervix with atypical squamous cells of undetermin ed significan ce (ASC-US);R ecorded Elsewhere: No Locatio n: [facility] rce: EHR Chroni c: N Practice ID: 0001 Billa ble Time: 08:45:10 AM Not Available [facility] 0 14:[facility]:[address] Concept Active 2018 Encntr for general adult medical exam w/o abnormal findings;R ecorded Elsewhere: No Locatio n: [facility] rce: EHR Chroni c: N Practice ID: 0001 Billa ble Time: 01:30:00 PM Not Available [facility] 0 14:40:[address] Concept Active 2015 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) w/o abn findings;R ecorded Elsewhere: No Locatio n: [facility] rce: EHR Chroni c: N Practice ID: 0001 Billa ble Time: 09:30:00 AM Not Available [facility] 0 14:40:02 Abdominal pain 20968133 Active 2011 Abdominal pain, other specified site;Recor ded Elsewhere: No Locatio n: [facility] rce: EHR Chroni c: N Practice ID: 0001 Billa ble Time: 09:00:00 AM Not Available [facility] 0 14:40:02 Evaluatio n finding 880577725 Active 2014 Positive high risk HPV DNA test of vagina;Rec orded Elsewhere: No Locatio n: [facility] rce: EHR Chroni c: N Practice ID: 0001 Billa ble Time: 09:15:00 AM Not Available [facility] 0 14:40:02 Leukocyto sis 545205234 Active 2013 LEUKOCYTOS IS NOS;Record ed Elsewhere: No Locatio n: [facility] rce: EHR Chroni c: N Practice ID: 0001 Billa ble Time: 09:30:00 AM Not Available [facility] 0 14:40:02 Atypical squamous cells on cervical Papanicol aou smear cannot exclude high grade squamous intraepit helial lesion 516048660 Active 2018 Atyp squam cell not excl hi grd intrepith lesn cyto smr crvx;Recor ded Elsewhere: No Locatio n: [facility] rce: EHR Chroni c: N Practice ID: 0001 Billa ble Time: 09:53:38 AM Not Available [facility] 0 14:40:03 Insect bite of ear region 084603227 Active 2015 Insect bite (nonvenomo us) of unspecifie d ear, sequela;Re corded Elsewhere: No Locatio n: [facility] rce: EHR Chroni c: N Practice ID: 0001 Billa ble Time: 09:30:00 AM Not Available [facility] 0 14:40:03 Female genital organ symptoms 129690253 Active 2011 Unspecifie d symptom associated with female genital organs;Rec orded Elsewhere: No Locatio n: [facility] rce: EHR Chroni c: N Practice ID: 0001 Billa ble Time: 09:30:00 AM Not Available [facility] 0 14:40:03 Right lower quadrant pain 276962383 Active 2011 Abdominal pain, right lower quadrant;P ractice ID: 0001 Not Available [facility] 0 14:40:04 Pre-surge ry evaluatio n Active 2011 Pre-operat aliyah examinatio n, unspecifie d;Practice ID: 0001 Not Available [facility] 0 14:40:04 Cyst of ovary 04356643 Active 2011 OVARIAN CYST;Pract ice ID: 0001 Not Available [facility] 0 14:40:04 Nonvenomo us insect bite of toe without infection 7896183 Active 2015 Insect bite (nonvenomo us), left lesser toe(s), init encntr;Pra ctice ID: 0001 Not Available [facility] 0 14:40:05 Problem Notes None recorded. Procedures Surgical History Date Name Laterality Status Provider Name and Address Organization Details Recorded Time 022 Date of Last Mammogram completed [facility] 10/02/2022 09:58:53 019 Date [facility] 09:58:16 014 procedure on knee completed [facility] 10/02/2022 10:01:12 013 hernia repair completed [facility] 10/02/2022 09:30:40 [address] [facility] 10/02/2022 09:28:20 012 laparoscopic bilateral salpingo-oophorectom y completed [facility] 10/02/2022 09:29:40 009 cardiac catheterization completed [facility] 10/02/2022 09:31:54 008 Carpal tunnel surgery completed [facility] 10/02/2022 09:30:51 008 re-release of carpal tunnel completed [facility] 10/02/2022 09:32:18 006 Total Hysterectomy completed [facility] 10/02/2022 09:47:15 006 Partial Hysterectomy completed [facility] 10/02/2022 09:47:25 [address] [facility] 10/02/2022 09:31:05 005 Dilation and Curettage completed [facility] 10/02/2022 09:47:04 004 procedure on neck completed [facility] 10/02/2022 10:00:45 003 reconstruction of intervertebral disc completed [facility] 10/02/2022 09:45:31 992 Tubal Ligation completed [facility] 10/02/2022 09:31:33 9[address] [facility] 10/02/2022 09:45:53 977 tonsilectomy/adenoid s completed [facility] 10/02/2022 09:46:20 Imaging Results None recorded. Procedure Notes None recorded. Medical Equipment None Reported. Allergies No known drug allergies Medications Name Sig Start Date Stop Date Status Note LastModified by Organization Details LastModified Time amoxicill in 500 mg capsule take 1 capsule (500MG) by oral route 3 times every day for 10 days 02/12 completed Prescrib ed Elsewher e: No Locat ion: [facility] odify By: cmedical Encount er DateTime : 02/04/20 12 09:52:24 AM Not Available Not Available Not Available albuterol (bulk) powder 01/14 completed Prescrib ed Elsewher e: Yes Loca tion: [facility] odify By: moris louise DateTime : 01/14/20 12 05:18:44 PM Not Available Not Available Not Available azithromy juli 250 mg tablet 10/02 completed Not Available Not Available Not Available benzonata te 200 mg capsule TAKE 1 CAPSULE BY MOUTH THREE TIMES DAILY NEEDED FOR COUGH 10/02 completed Not Available Not Available Not Available metoprolo l succinate ER 50 mg tablet,ex tended release 24 hr TAKE 1 TABLET BY MOUTH DAILY active Not Available Not Available No t Available Xanax 2 mg tablet take 1 tablet by oral route 3 times every day active Prescrib ed Elsewher e: Yes Loca tion: [facility] odify By: bruce louise DateTime : 01/30/20 12 09:00:00 AM Not Available Not Available Not Available phenazopy ridine 200 mg tablet 10/02 completed Not Available Not Available Not Available prednison e 20 mg tablet TAKE 2 TABLETS BY MOUTH DAILY 10/02 completed Not Available Not Available Not Available Zoloft 20 mg/mL oral concentra te take 2.5 millilit er by oral route every day and mix with 4 oz. (1/2 cup) of water, beatrice cynthia, lemon/li me soda, lemonade or orange juice ONLY 08/04 completed Prescrib ed Elsewher e: Yes Loca tion: [facility] odify By: guy diorunthaider DateTime : 01/14/20 12 05:18:44 PM Not Available Not Available Not Available Advair Diskus 100 mcg-50 mcg/dose powder for inhalatio n inhale 1 puff by inhalati on route 2 times every day in the morning and evening approxim ately 12 hours apart 10/02 completed Prescrib ed Elsewher e: Yes Loca tion: [facility] odify By: cam Portillo nthaider DateTime : 01/14/20 12 05:18:44 PM Not Available Not Available Not Available chlorthal idone 25 mg tablet TAKE 1 TABLET BY MOUTH EVERY DAY IN THE MORNING active Not Available Not Available No t Available naproxen 125 mg/5 mL oral suspensio n take 10 millilit er by oral route every 6 - 8 hours as needed with food 10/02 completed Prescrib ed Elsewher e: Yes Loca tion: [facility] odify By: smccynthiay Josselin neumann DateTime : 02/26/20 17 08:45:00 AM Not Available Not Available Not Available sulfameth oxazole 800 mg-trimet hoprim 160 mg tablet TAKE 1 TABLET BY MOUTH TWICE DAILY FOR 5 DAYS 10/02 completed Not Available Not Available Not Available alprazola m 0.25 mg tablet TAKE 1 TABLET BY MOUTH THREE TIMES DAILY NEEDED FOR ANXIETY 10/02 completed Not Available Not Available Not Available Metrogel Vaginal 0.75 % (37.5 mg/5 gram) insert 1 applicat orful by vaginal route every day at bedtime 08/04 completed Prescrib ed Elsewher e: No Locat ion: [facility] odify By: amrafi diorunter DateTime : 01/26/20 14 03:43:34 PM Not Available Not Available Not Available Cipro 500 mg tablet take 1 tablet by oral route every 12 hours 03/23 completed Prescrib ed Elsewher e: No Locat ion: [facility] odify By: jeffrey neumann DateTime : 01/29/20 16 09:30:00 AM Not Available Not Available Not Available buspirone 10 mg tablet take 1 tablet by oral route 3 times every day 08/04 completed Prescrib ed Elsewher e: Yes Loca tion: [facility] odify By: guy diorunthaider DateTime : 01/30/20 12 09:00:00 AM Not Available Not Available Not Available Wellbutri n 75 mg tablet take 1 tablet by oral route 3 times every day 01/19 completed Prescrib ed Elsewher e: Yes Loca tion: [facility] odify By: brigido louise DateTime : 01/14/20 12 05:18:44 PM Not Available Not Available Not Available Advair Diskus 250 mcg-50 mcg/dose powder for inhalatio n INHALE 1 PUFF BY MOUTH TWICE DAILY active Not Available Not Available No t Available gabapenti n 300 mg capsule TAKE 1 CAPSULE BY MOUTH THREE TIMES DAILY NEEDED 10/02 completed Not Available Not Available Not Available hyoscyami ne 0.125 mg/mL oral drops take 1 millilit er by oral route every 4 hours as needed 01/14 completed Prescrib ed Elsewher e: Yes Loca tion: [facility] odify By: moris louise DateTime : 01/14/20 12 05:18:44 PM Not Available Not Available Not Available Alprazola m Intensol 1 mg/mL oral concentra te take 0.25 millilit er by oral route 3 times every day mixed with water, juice, soda, soda-lik e beverage , applesau ce or pudding 01/14 completed Prescrib ed Elsewher e: Yes Loca tion: [facility] odify By: moris louise DateTime : 01/14/20 12 05:18:44 PM Not Available Not Available Not Available gabapenti n 100 mg capsule TAKE 1 CAPSULE BY MOUTH TWICE DAILY NEEDED active Not Available Not Available No t Available metoprolo l tartrate (bulk) 100 % powder 10/02 completed Prescrib ed Elsewher e: Yes Loca tion: [facility] odify By: aiyana pool DateTime : 01/29/20 16 09:30:00 AM Not Available Not Available Not Available albuterol sulfate HFA 90 mcg/actua tion aerosol inhaler INHALE 2 PUFFS BY MOUTH EVERY 4 HOURS FOR 16 DAYS NEEDED active Not Available Not Available No t Available sertralin e 50 mg tablet take 1 tablet by oral route every day 01/19 completed Prescrib ed Elsewher e: Yes Loca tion: [facility] odify By: brigido louise DateTime : 01/30/20 12 09:00:00 AM Not Available Not Available Not Available naproxen 500 mg tablet TAKE 1 TABLET BY MOUTH EVERY 12 HOURS NEEDED active Not Available Not Available No t Available bupropion HCl XL 300 mg 24 hr tablet, extended release TAKE 1 TABLET BY MOUTH EVERY DAY IN THE MORNING active Not Available Not Available No t Available Divigel 1 mg/gram (0.1 %) transderm al gel packet apply 1 packet by topical route every day to upper thigh 10/02 completed Prescrib ed Elsewher e: No [facility]at [facility] odify By: cam bowling DateTime : 03/23/20 19 01:30:00 PM Not Available Not Available Not Available Flector 1.3 % transderm al 12 hour patch apply 1 patch by transder mal route 2 times every day to most painful area 01/14 completed Prescrib ed Elsewher e: Yes Loca tion: Cong tori [facility] odify By: moris louise DateTime : 01/14/20 12 05:18:44 PM Not Available Not Available Not Available BinaxNOW COVID-19 Ag Self Test kit TEST DIRECTED TODAY 10/02 completed Not Available Not Available Not Available Paxlovid 300 mg (150 mg x 2)-100 mg tablets in a dose pack TK 2 NIRMATRE LVIR TS AND 1 RITONAVI R T TOGETHER PO BID FOR 5 DAYS 10/02 completed Not Available Not Available Not Available Vitals Date Recorded Body height Body mass index (BMI) Body weight Systolic blood pressure Diastolic blood pressure Provider Name and Address Organization Details Last Updated DateTime 10/02/2022 170.18 cm 29.4 kg/m2 72406.37 g 120 mm[Hg] 72 mm[Hg] [facility] 10:06:16 Social History None recorded. Functional Status None recorded. Mental Status None recorded. Family History Relationship Description Onset Age of this Age Resolved Age Notes LastModified by Organization Details LastModified Time Father Malignant neoplasm of skin [email or web address] Not available 2022 10:03:15 Notes:Father: Heart disease, Hypertension, Diabetes mellitus, Congenital heart disease, Hypertension Maternal grandfather: Tuberculosis Maternal grandmother: Diabetes mellitus Mother: Hypertension, Hepatitis C, Diabetes mellitus type 1, Heart disease, Hepatitis, Hypertension, Diabetes mellitus, Congenital heart disease Paternal grandfather: Anemia Paternal grandmother: Congenital heart disease, Diabetes mellitus Son: ADD/ADHD Medical History Condition Response Allergies (Food, seasonal, environmental ) N Other N Breast Cancer N Drug/Latex Allergies/Reactions N Blood Transfusion N Dermatologic Disorders N Lung Disease N Defects or Inherited Disease N Breast Problem N Gestational Diabetes N Hematologic disorders N Anesthesia Complications N History of STI N Deep Vein Thrombosis N Polycystic ovary syndrome N Anxiety Disorder Y Autoimmune disease N Arthritis N Infertility N Polyps N Acid Reflux (GERD) N History of abnormal pap N Cancer N Stroke N Varicosities N Neurologic/Epilepsy N Endometriosis N High Cholesterol N Headaches N Fibromyalgia N Kidney Disease N Heart Problems N Kidney or Bladder Problems N Thyroid Problems N GI Problems N Eating Disorder N Anemia N Art (IVF or FET) N Psychiatric Illness N Ovarian Cancer N Diabetes N Pulmonary (TB, Asthma) N Hepatitis/Liver Disease N No Past Medical History N Eczema N Urinary Tract Infection N Abuse/Domestic Violence N Asthma Y Trauma/Violence N Depression/ depression N Heart Disease N Pre-Eclampsia N Hypertension Y Osteoporosis N Thrombophilias N Gynecological History Statement/Question Response Abnormal Pap N Date of Last Colonoscopy Date of Last Mammogram 07/27/2021 Most Recent Bone Density Sexually Active? Y STIs/STDs N Age of first menstrual cycle 15 HPV Vaccine N Date of Last Pap Smear 03/23/2019 Sexual Problems? 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 Do monthly self breast exams. It is advised to get annual flu shot in the fall and she could obtain at [facility] or [facility] care clinic. If you haven't received the Tdap vaccine in the last 10 years you should obtain one as well. Have mammogram yearly, bone density every 2-3 years and colonoscop y every 5-10 years depending on findings and history. Engage in daily exercise of low impact aerobic exercise 45-60 minutes 4-5 times weekly. Avoid tobacco and illicit drugs as well as using moderation with alcohol intake less than 1-2 8 oz beverages daily. This lifestyle behavior pattern will lead to less health conditions and longer life span. If BMI greater than 25 weight watchers or dietary consult advised. Questions have been answered. Patient appears to understand instructio ns, but if you have any further questions call or respond to this email Pap/hpv d/c USPSTF recommends against screening for cervical cancer in women older than 65yo, those who've had a hysterecto my for non-cancer indication s, & who have had adequate prior screening & are not otherwise at high risk for cervical cancer. STD Screen declined Genetic Screen discussed Colon Screen PCP Dexa Screen ordered Routine Labs PCPMammo ordered Screening mammography 24 093565 Z12.31 Postmenopa usal osteopenia 485987209 M85.80 Health Concerns Section Related Observation LastModified by Organization Detai ls LastModified Time None Recorded Concern Status LastModified by Organization Details LastModified Time None Recorded Advance Directives Directive None Recorded Payers Encounter Date Sequence Insurance Name Policy Number Policy Harding Covered Member ID Harding Member ID Guarantor Name 10/02/2022 1 [facility] [place]) [id number] Daryn Anthony [id number] Daryn Anthony Notes Date Note Type Note Provider Name and Address Organization Details Recorded Time 10/02/2022 text/html Annual Physiologist Post-MenopausalRe ported bypatient.Menopau mackenzie Symptoms:no menopausal symptoms; normal vaginal lubrication Vaginal Bleeding:history of menopause having occurred; no history of post menopausal bleeding Urinary Symptoms:no hematuria; no incontinence; no nocturia; no urinary frequency Vulva:no genital lesion; no vulvar atrophy Vagina:normal vaginal discharge; no vaginal atrophy Breast:no breast lump; no nipple discharge; no breast pain Sexual Complaints:no sexual complaints Psychological Symptoms:no depression; no anxiety Preventive Measures:encourag e regular mammograms starting age 40; encourage self breast examination; encourage regular exercise; encourage no tobacco use; needs to schedule mammogram; needs to schedule colonoscopy Libertad Barlow, KIZZY- [address] [place], [address], [facility] 10/02/2022 10:26:04 OBGyn Episode Ob Episode Information Episode Created Date Number of Fetuses Patient Bloodtype Patient rh Status Prepregnancy Weight lbs Domestic Partner Domestic Partner Phone Father Name Confectionery Cooker Status 10/03/19 23 1 CLOSED Fetus Data First Name Last Name Admitted to NICU Weight (g) Sex Living Outcome Pediatric Complications Fetus ID Race Codes Race Delivery Type 2438.05 7 F Full Term [id number] Vaginal Delivery Greyson Calculation Initial Greyson Date Initial Exam Date Initial Exam Provider Initial Ultrasound Date Last Menstrual Period Date Ultra Sound Weeks Gestation 0 Eighteen To Twenty Week Greyson Update Ultra Sound Date Fundal Height At Umbil Quickening Date Ultra Sound Latest Weeks Gestation Final Greyson Confirmed By Final Greyson Confirmed Date Final Greyson Date Ultra Sound Latest Days Gestation 0 0 Menstrual History Last Menstrual Date Menses Monthly On Bcp Conception Prior Menses Frequency Hcg Plus Date Menarche Onset Age Delivery Information Delivery Date Delivery Type Labor Anesthesia Weeks Gestation Incision Type Labor Labor Length Hrs Delivered By Post Complications Tubal Sterilization Discharge Date Comments Discharge Information Feeding Method Contraceptive Method Maternal HG B and HCT Levels Ob Episode Information Episode Created Date Number of Fetuses Patient Bloodtype Patient rh Status Prepregnancy Weight lbs Domestic Partner Domestic Partner Phone Father Name Confectionery Cooker Status 10/03/19 23 1 CLOSED Fetus Data First Name Last Name Admitted to NICU Weight (g) Sex Living Outcome Pediatric Complications Fetus ID Race Codes Race Delivery Type 2863.07 2704 M Full Term [id number] Vaginal Delivery Greyson Calculation Initial Greyson Date Initial Exam Date Initial Exam Provider Initial Ultrasound Date Last Menstrual Period Date Ultra Sound Weeks Gestation 0 Eighteen To Twenty Week Greyson Update Ultra Sound Date Fundal Height At Umbil Quickening Date Ultra Sound Latest Weeks Gestation Final Greyson Confirmed By Final Greyson Confirmed Date Final Greyson Date Ultra Sound Latest Days Gestation 0 0 Menstrual History Last Menstrual Date Menses Monthly On Bcp Conception Prior Menses Frequency Hcg Plus Date Menarche Onset Age Delivery Information Delivery Date Delivery Type Labor Anesthesia Weeks Gestation Incision Type Labor Labor Length Hrs Delivered By Post Complications Tubal Sterilization Discharge Date Comments 2 Discharge Information Feeding Method Contraceptive Method Maternal HG B and HCT Levels
--- OUTSIDE RECORDS SUMMARY | 2024-08-18 20:52 | XMS_ITS | Clinical Summary ---
Author Organization [facility] Address [address] [place] [address] Care Team Providers Care Roll Forming Supervisor Name Role Phone Pawan Ramírez MD Primary Care Provider [phone] Source Comments [facility],non-owned Affiliates and Associated Physician Practices is amultiple site organization consisting of ambulatory clinics and hospital sitesin [place], [place], [place] and [place]. This disclosure is being madepursuant to the Care Everywhere program and may not contain all information available regarding this patient. Last updated 18.[facility] Allergies No known active allergies Medications * Be aware that medications may not be up to date on this document. Alwaysverify current medications with the patient. Medication Sig Dispensed Refills Start Date End Date Status metoprolol succinate XL 24hr (TOPROL XL) 50 MG tablet Take 50 mg by mouth once daily 0 11/07/2018 Active buPROPion XL 24hr (WELLBUTRIN-XL) 300 MG tablet TK 1 T PO QD IN THE MORNING 0 10/04/2018 Active chlorthalidone (HYGROTON) 25 MG tablet TK 1 T PO QD IN THE MORNING 0 10/04/2018 Active naproxen (NAPROSYN) 500 MG tablet 2 times daily as needed 0 10/04/2018 Active fluticasone-salmeter ol (ADVAIR DISKUS) 250-50 MCG/DOSE inhaler Inhale 1 puff by mouth 2 times daily Active Estradiol (DIVIGEL TD) Active albuterol HFA (PROVENTIL;VENTOLIN; PROAIR) 108 (90 Base) MCG/ACT inhaler Inhale 2 puffs by mouth every 6 hours as needed Active Nerve Stimulator (TENS THERAPY PAIN RELIEF) DEVIIndications:Neck pain Use 1 device as needed (apply to posterior neck and shoulder region) 1 device 12/22/2018 Active HYDROcodone-acetamin ophen (NORCO) 5-325 MG tablet Take 1 (one) tablet by mouth every 4 hours as needed 12 tablet 11/02/2020 Active Active Problems Problem Noted Date Diagnosed Date [...] Mass Index 32.26 04/15/2021 2:33 PM CDT Plan of Treatment Health Maintenance Due Date Last Done Comments COLOGUARD (AGES 45-75) - COL ON CA SCREENING 1961 COLON MONITORING 1961 COLONOSCOPY - COLON CA SCREENING 1961 CT COLONOGRAPHY - COLON CA SCREENING 1961 Colorectal Cancer Screening 1961 FIT - COLON CA SCREENING 1961 FLEX SIG - COLON CA SCREENING 1961 LIPID TESTING 1961 MAMMOGRAM 1961 PAP SMEAR 1961 HIV SCREENING 1976 HEPATITIS C SCREENING 03/25/1979 DTAP/TDAP/TD VACCINES (1 - Tdap) 1980 PNEUMOCOCCAL VACCINE 50+ (1 of 1 - PCV) 2011 ZOSTER VACCINE (1 of 2) 2011 SCREENING FOR DIABETES 11/03/2023 1, 10/30/2020 COVID-19 VACCINE (1 - 2023-2 5 season) 2024 INFLUENZA VACCINE (#1) 2024 DEPRESSION SCREENING 07/27/2024 Respiratory Syncytial Virus (RSV) Vaccine Pt: or over 60 yrs (1 - 1-dose 75+ series) 2036 HEPATITIS B VACCINE Aged Out No longe r eligible based on patient's age to complete this topic HIB VACCINE Aged Out No longer eligi ble based on patient's age to complete this topic HPV VACCINE Aged Out No longer eligi ble based on patient's age to complete this topic MENINGOCOCCAL (Group B) VACCINE Aged Out No longer eligible b ased on patient's age to complete this topic MENINGOCOCCAL VACCINE Aged Out No jaren maty eligible based on patient's age to complete this topic PNEUMOCOCCAL VACCINE Aged Out No long er eligible based on patient's age to complete this topic Medical Devices Implanted Type Area Infant Teacher Device Identifier Shelf Expiration Date Model / Serial / Lot Spcr Algrf [id number] Maria E Lalv - [id number] Implanted:Qty : 1 on 11/01/2020 by Bala Tamayo MD at [facility] Spine Cervical [employer] 04/20/2023 [id number] / [id number] / [id number] Screw Pk2 4.0x15 Radha Canela Implanted:Qty : 1 on 11/01/2020 by Bala Tamayo MD at [facility] Spine Cervical [employer] 08/09/2023 [id number] / / [id number] Screw Pk2 4.0x15 Radha Canela Implanted:Qty : 1 on 11/01/2020 by Bala Tamayo MD at [facility] Spine Cervical [employer] 08/09/2023 [id number] / / [id number] Plate Sds 21mm Ti Strl Implanted:Qty : 1 on 11/01/2020 by Bala Tamayo MD at [facility] Spine Cervical [employer] 08/27/2023 [id number] / / [id number] Explanted Type Area Infant Teacher Device Identifier Shelf Expiration Date Model / Serial / Lot Plate Sds 19mm Ti Strl Explanted:Qty: 1 on 11/01/2020 by Bala Tamayo MD at [facility] Spine Cervical [employer] 08/22/2023 [id number] / / [id number] Procedures Procedure Name Priority Date/Time Associated Diagnosis Comments BASIC METABOLIC PANEL (CALCIUM TOTAL) AM Draw 11/02/2020 2:44 AM CDT Cervical radiculopathy from Last 3 Months or Most Recently Relevant to Health Maintenance Results * (ABNORMAL) BASIC METABOLIC PANEL (CALCIUM TOTAL) (11/02/2020 2:44 AM CDT) Glucose 128(H) 70 - 105 mg/dL 11/02/2020 4:25 AM CDT [facility] Sodium 136 136 - 145 mmol/L 11/02/2020 4:25 AM CDT [facility] Potassium 3.8 3.5 - 5.1 mmol/L 11/02/2020 4:25 AM CDT [facility] Chloride 100 98 - 107 mmol/L 11/02/2020 4:25 AM CDT [facility] CO2 25 23 - 31 mmol/L 11/02/2020 4:25 AM CDT [facility] Calcium 8.6 8.4 - 10.4 mg/dL 11/02/2020 4:25 AM CDT [facility] Anion Gap 11 8 - 18 mmol/L 11/02/2020 4:25 AM CDT [facility] Comment:Attention clinician: Reference Range change. BUN 16 9.8 - 20.1 mg/dL 11/02/2020 4:25 AM CDT [facility] Creatinine 0.92 0.57 - 1.11 mg/dL 11/02/2020 4:25 AM CDT [facility] eGFR by MDRD >60 >60 mL/min/1.7 3m2 11/02/2020 4:25 AM CDT [facility] eGFR by MDRD >60 >60 mL/min/1.7 3m2 11/02/2020 4:25 AM CDT [facility] Blood BLOOD SPECIMEN / Unknown Lab Venipuncture / Unknown 11/02/2020 2:44 AM CDT 11/02/2020 3:57 AM CDT Gricel Monge ANALYTICAL CHEMISTRY TEACHER-GEOMETRICIAN LAB - CH EMISTRY ORDERABLES [facility] [address] [place] [address] from Last 3 Months or Most Recently Relevant to Health Maintenance Advance Directives * Full Code (Latest Code Status on File) Date Activated Date Inactivated Comments 11/01/2020 3:19 PM 11/02/2020 7:06 PM Care Teams Roll Forming Supervisor Relationship Specialty Start Date End Date Pawan Ramírez MD [address] [place] [address] PCP - General 11/24/18
--- OUTSIDE RECORDS SUMMARY | 2024-08-18 20:52 | XMS_ITS | Referral Summary ---
Author Organization [facility] Address [address] [place] [address] Care Team Providers Care Boilermaker Apprentice Name Role Phone Pawan Ramírez MD Primary Care Provider [phone] Source Comments [facility],non-owned Affiliates and Associated Physician Practices is amultiple site organization consisting of ambulatory clinics and hospital sitesin [place], [place], [place] and [place]. This disclosure is being madepursuant to the Care Everywhere program and may not contain all information available regarding this patient. Last updated 18.[facility] Allergies No known active allergies Medications * [...] 04/15/2021 2:33 PM CDT Plan of Treatment Not on file Medical Devices Implanted Type Area Tech Ed/Woodshop Teacher Device Identifier Shelf Expiration Date Model / Serial / Lot Spcr Algrf [id number] Spkiley Lalv - [id number] Implanted:Qty : 1 on 11/01/2020 by Blaa Tamayo MD at [facility] Spine Cervical [employer] 04/20/2023 [id number] / [id number] / [id number] Screw Pk2 4.0x15 Radha Canela Implanted:Qty : 1 on 11/01/2020 by Bala Tamayo MD at [facility] Spine Cervical [employer] 08/09/2023 [id number] / / [id number] Screw Pk2 4.0x15 Slf-Dr Canela Implanted:Qty : 1 on 11/01/2020 by Bala Tamayo MD at [facility] Spine Cervical [employer] 08/09/2023 [id number] / / [id number] Plate Sds 21mm Ti Strl Implanted:Qty : 1 on 11/01/2020 by Bala Tamayo MD at [facility] Spine Cervical [employer] 08/27/2023 [id number] / / [id number] Explanted Type Area Tech Ed/Woodshop Teacher Device Identifier Shelf Expiration Date Model / Serial / Lot Plate Sds 19mm Ti Strl Explanted:Qty: 1 on 11/01/2020 by Bala Tamayo MD at [facility] Spine Cervical [employer] 08/22/2023 [id number] / / [id number] Procedures Procedure Name Priority Date/Time Associated Diagnosis Comments BASIC METABOLIC PANEL (CALCIUM TOTAL) AM Draw 11/02/2020 2:44 AM CDT Cervical radiculopathy from Last 3 Months or Most Recently Relevant to Health Maintenance Results * (ABNORMAL) BASIC METABOLIC PANEL (CALCIUM TOTAL) (11/02/2020 2:44 AM CDT) [facility] Glucose 128(H) 70 - 105 mg/dL 11/02/2020 [...] 3m2 11/02/2020 4:25 AM CDT [facility] Blood BLOOD SPECIMEN / Unknown Lab Venipuncture / Unknown 11/02/2020 2:44 AM CDT 11/02/2020 3:57 AM CDT Gricel Monge PRESSURE WASHER-TUFTER LAB - CH EMISTRY ORDERABLES [facility] [address] [place] [address] from Last 3 Months or Most Recently Relevant to Health Maintenance Advance Directives * Full Code (Latest Code Status on File) Date Activated Date Inactivated Comments 11/01/2020 3:19 PM 11/02/2020 7:06 PM Care Teams Boilermaker Apprentice Relationship Specialty Start Date End Date Pawan Ramírez MD [address] [place] [address] PCP - General 11/24/18
--- OUTSIDE RECORDS SUMMARY | 2024-08-18 20:52 | XMS_ITS | Continuity of Care Document ---
Author Organization [facility] Address [address] [place] [address] Phone Care Team Providers Care Polisher Sand Name Role Phone Kush Yañez MD Unavailable Unavailable Medications Medication Instructions Dosage Effective Dates (start - stop) Status Comments VENTOLIN HFA (unknown strength) inhale 2 puff by inhalation route every 4 - 6 hours as needed Not Available - Active ADVAIR HFA (unknown strength) inhale 2 puff by inhalation route 2 times every day in the morning and evening Not Available - Active BUPROPION HCL (unknown strength) take 1 tablet by oral route 3 times every day Not Available - Active Procedures Procedure Date X-ray exam knee, 1 or 2 views 4 X-ray exam both knees, standing 014 Independent Medical Examination ERNIE Advance Directives Directive Yes / No Effective Date File Name No Information Encounters Encounter Description Practice Location Reason(s) For Visit Diagnoses Date Provider Providers Copied on Encounter [facility], [address] [place] [address], [id number], tel:[phone] No Information 4 Pari Currie. [address] [place] [address], [place] [address], [place], [place], [id number] , [place]. tel: [phone] Independent Medical Examination [facility], [address] [place] [address], [id number], tel:[phone] [facility] JOINT PAIN-L/LEG 4 Pari Currie. [address] [place] [address], [address], [place], [place], [id number] , [place]. tel: [phone] Family History Family Member Type Diagnosis Age At Onset Father Problem (finding) diabetes melli tus in first degree relative Father Problem (finding) Heart Trouble Mother Problem (finding) diabetes melli tus in first degree relative Father Problem (finding) hypertension Mother Problem (finding) Heart Trouble Mother Problem (finding) hypertension Payers Payer name Insurance type Covered democrat ID Emile anthony(s) [facility] [id number] Social History Type Description Quantity Date Captured Comments Sex Female Smoking Status No Information Chief Complaint And Reason For Visit No Information Reason For Referral Reason For Referral No Information Plan Of Treatment Date Type Action Status Referral Ordered: X-ray exam both knees, standing ordered Referral Ordered: X-ray exam knee, 1 or 2 views LT ordered History Of Present Illness Encounter Date Complaint History Of Prese nt Illness No Information Functional Status Date Functional Assessmen t No Information Instructions Date Instruction Additional Infor mation No Information Assessments Type Assessment Date No Information Patient Care Teams Name Effective Dates (start - stop) Status Members No Information
--- OUTSIDE RECORDS SUMMARY | 2024-08-18 20:52 | XMS_ITS | Clinical Summary ---
Author Organization [facility] Address [address] [place] [address]. [phone] Care Team Providers Care Incinerator Attendant Name Role Phone Pawan Ramírez MD Primary Care Provider [phone] Allergies No known active allergies Medications naproxen (NAPROSYN) 500 MG tablet Take 1 tablet (500 mg total) by mouth daily. Active gabapentin (NEURONTIN) 100 MG capsule Take 1 capsule (100 mg total) by mouth daily. Active metoprolol succinate ER (TOPROL-XL) 50 MG 24 hr tablet Take by mouth daily. Active chlorthalidone (HYGROTEN) 25 MG tablet Take 1 tablet (25 mg total) by mouth daily. Active buPROPion XL (WELLBUTRIN XL) 300 MG 24 hr tablet Take 1 tablet (300 mg total) by mouth daily. Active fluticasone-mackenzie meterol (ADVAIR DISKUS) 250-50 MCG/ACT inhaler Inhale 1 puff into the lungs 2 (two) times daily. Active albuterol sulfate HFA 108 (90 Base) MCG/ACT inhaler Inhale 2 puffs into the lungs every 6 (six) hours as needed. Active SEMAGLUTIDE-GIOVANY GHT MANAGEMENT SC Active cetirizine (ZYRTEC) 5 MG tablet Take 1 tablet (5 mg total) by mouth daily. 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 Encounters Date Type Department Care Team Description 05/26/2024 4:54 PM CDT - 05/26/2024 11:59 PM CDT Hospital Encounter [facility] [address] [place] [phone] Lidia Dimas, Zulema Pal MD Neck Pain Discharge Disposition: Home or Self Care (Routine Discharge) 05/26/2024 Travel 05/24/2024 4:56 PM CDT - 05/24/2024 11:59 PM CDT Hospital Encounter [facility] [address] [place] [phone] Zulema Beth MD Eddy, Sandi L, ALESHA Neck Pain Discharge Disposition: Home or Self Care (Routine Discharge) 05/24/2024 Travel 05/18/2024 7:30 AM CDT - 05/18/2024 11:59 PM CDT Hospital Encounter [facility] [address] [place] [phone] Lidia Dimas, Zulema Pal MD Neck Pain Discharge Disposition: Home or Self Care (Routine Discharge) 05/18/2024 Travel from Last 3 Months Social History Tobacco Use Types Packs/Day Years Used Date Smoking Tobacco: Never Smokeless Tobacco: Never Tobacco Cessation:Counseling Given: Not Answered Alcohol Use Standard Drinks/Week Comments Not Currently 0 (1 standard drink = 0.6 oz pur e alcohol) rarely Comments No Sex and Gender Information Value Date Recorded Sex Assigned at Not on file Legal Sex Female 4:08 PM CDT Gender Identity Not on file Sexual Orientation Not on file Last Filed Vital Signs Vital Sign Reading Time Taken Comments Blood Pressure 98/48 01/12/2023 5:15 AM CDT Pulse 65 01/12/2023 5:15 AM CDT Temperature 36.8 ??C (98.2 ??F) 01/12/2023 5:15 AM CD T Respiratory Rate 16 01/12/2023 5:15 AM CDT Oxygen Saturation 94% 01/12/2023 5:15 AM CDT Inhaled Oxygen Concentration - - Weight 76.4 kg (168 lb 6.9 oz) 01/11/2023 10:11 PM CDT Height 170.2 cm (5' 7 ) 01/11/2023 10:08 PM CDT Body Mass Index 26.38 01/11/2023 10:08 PM CDT Plan of Treatment Health Maintenance Due Date Last Done Comments Colorectal Cancer Screening Colonoscopy (10 Years) 1961 Annual Physical 1964 Hepatitis C 1979 DTaP, Tdap and Td Vaccines ( 1 - Tdap) 1980 Mammogram Screening 2001 Zoster Vaccines (1 of 2) 2011 COVID-19 Vaccine (1 - 2023-2 5 season) 2024 Influenza Adult (#1) 2024 RSV Immunization or 60+ Years (1 - 1-dose 75+ series) 2036 Meningococcal Vaccine Aged Out No jaren maty eligible based on patient's age to complete this topic Pneumococcal Vaccine: Pediat rics (0 to 5 Years) and At-Risk Patients (6 to 64 Years) Aged Out No longer eligible b ased on patient's age to complete this topic RSV Immunizations Under 20 Months Aged Out No longer eligible based on patient's age to complete this topic Insurance Care Teams Incinerator Attendant Relationship Specialty Start Date End Date Pawan Ramírez MD [address] [place] [id number] PCP - General FAMILY PRACTICE 06/28/19
== END 2024-08-17 16:27 | disposition home or self-care (01) ==
PROVIDERS: PCP Family Medicine; Visit Provider Neurological Surgery
PROC: (CPT 63030; principal; 2024-08-17 11:00)
DX: M50.321 Other cervical disc degeneration at C4-C5 level (principal); I10 Essential (primary) hypertension; R73.03 Prediabetes; E78.00 Pure hypercholesterolemia, unspecified; J45.909 Unspecified asthma, uncomplicated; F33.8 Other recurrent depressive disorders; Z79.51 Long term (current) use of inhaled steroids; Z79.1 Long term (current) use of non-steroidal anti-inflammatories (NSAID); Z79.85 Long-term (current) use of injectable non-insulin antidiabetic drugs; Z98.890 Other specified postprocedural states; Z98.1 Arthrodesis status; Z90.49 Acquired absence of other specified parts of digestive tract; Z84.0 Family history of diseases of the skin and subcutaneous tissue; Z82.49 Family history of ischemic heart disease and other diseases of the circulatory system
CPT/HCPCS: 22551; 22853; 36415; 86850; 86900; 86901; 99199; A9270; C1713; J0690; J1100; J1200; J2003; J2250; J2405; J2704; J3010; J7120

== ENCOUNTER 2024-11-30 07:52 | Outpatient (CLI) | payer BC, SELFPAY ==
--- NOTE | ~2024-11-30 | XR_ITS ---
XR_[id number]_CR 11/30/2024 08:13 Indication: Arthrodesis status. Procedure: 3 view cervical spine Comparison: 07/13/2024 Findings: There has been interval anterior fusion and discectomy at C4-5. Pedicle screws intact. Ther e is fusion at C5-C6 at the disc space. There is anterior fusion at C6-7. Odontoid process is normal. Lateral masses normally aligned. Lung apices are normal. No prevertebral soft tissue abnormality. Impression: 1: Postoperative changes consistent with fusion at C4-5, C5-6 and C6-7. No acute bone or joint abnorm ality. Reviewed, dictated and finalized at location A. Impression: 1: Postoperative changes consistent with fusion at C4-5, C5-6 and C6-7. No acut e bone or joint abnormality.
--- OUTSIDE RECORDS SUMMARY | 2024-11-30 07:58 | XMS_ITS | Clinical Summary ---
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 [address] [place] [id number] Zulema Beth MD Eddy, Sandi L, VENDING ROUTE DRIVER Neck Pain Discharge Disposition: Home or Self Care (Routine Discharge) 11/21/2024 Travel 11/17/2024 7:24 AM CDT - 11/17/2024 11:59 PM CDT Hospital Encounter [facility] [address] [place] [phone] Zulema Beth MD Eddy, Sandi L, VENDING ROUTE DRIVER Neck Pain Discharge Disposition: Home or Self Care (Routine Discharge) 11/17/2024 Travel 11/14/2024 7:30 AM CDT - 11/14/2024 11:59 PM CDT Hospital Encounter [facility] [address] [place] [phone] Lidia Dimas, PT Zulema Beth MD Fusion Discharge Disposition: Home or Self Care (Routine Discharge) 11/14/2024 Travel 10/21/2024 7:00 AM CDT - 10/21/2024 11:59 PM CDT Hospital Encounter [facility] [address] [place] [phone] Lidia Dimas, PT Zulema Beth MD Neck Pain Discharge Disposition: Home or Self Care (Routine Discharge) 10/21/2024 Travel 10/17/2024 7:30 AM CDT - 10/17/2024 11:59 PM CDT Hospital Encounter [facility] [address] [place] [phone] Zulema Beth MD Eddy, Sandi L, VENDING ROUTE DRIVER Neck Pain Discharge Disposition: Home or Self Care (Routine Discharge) 10/17/2024 Travel 10/13/2024 7:29 AM CDT - 10/13/2024 11:59 PM CDT Hospital Encounter [facility] [address] [place] [phone] Zulema Beth MD Gerling, Savannah L, VENDING ROUTE DRIVER Cervical Pain Discharge Disposition: Home or Self Care (Routine Discharge) 10/13/2024 Travel 10/10/2024 7:29 AM CDT - 10/10/2024 11:59 PM CDT Hospital Encounter [facility] [address] [place] [phone] Zulema Beth MD Gerling, Savannah L, VENDING ROUTE DRIVER Neck Pain Discharge Disposition: Home or Self Care (Routine Discharge) 10/10/2024 Travel 10/06/2024 7:30 AM CDT - 10/06/2024 11:59 PM CDT Hospital Encounter [facility] [address] [place] [phone] Zulema Beth, Joana Ferrell, VENDING ROUTE DRIVER Neck Pain Discharge Disposition: Home or Self Care (Routine Discharge) 10/06/2024 Travel 10/03/2024 8:03 AM CDT - 10/03/2024 11:59 PM CDT Hospital Encounter [facility] [address] [place] [phone] Lidia Dimas, PT Zulema Beth MD Cervical Pain Discharge Disposition: Home or Self Care (Routine Discharge) 10/03/2024 Travel from Last 3 Months Social History Tobacco Use Types Packs/Day Years Used Date Smoking Tobacco: Never Smokeless Tobacco: Never Tobacco Cessation:Counseling Given: Not Answered Alcohol Use Standard Drinks/Week Comments Not Currently 0 (1 standard drink = 0.6 oz pur e alcohol) rarely Comments No Sex and Gender Information Value Date Recorded Sex Assigned at Female 09/23/2024 2:56 PM PIGMENT FURNACE TENDER Legal Sex Female 4:08 PM CDT Gender Identity Not on file Sexual Orientation Not on file Last Filed Vital Signs Vital Sign Reading Time Taken Comments Blood Pressure 98/48 01/12/2023 5:15 AM CDT Pulse 65 01/12/2023 5:15 AM CDT Temperature 36.8 C (98.2 F) 01/12/2023 5:15 AM CDT Respiratory Rate 16 01/12/2023 5:15 AM CDT [...] 1 - Tdap) 1980 Mammogram Screening 2001 Pneumococcal Vaccine: 50+ Ye ars (1 of 1 - PCV) 2011 Zoster Vaccines (1 of 2) 2011 COVID-19 Vaccine ( - 2023-2 5 season) 2024 RSV Immunization or 60+ Years (1 - 1-dose 75+ series) 2036 Meningococcal B Vaccine Aged Out No l onger eligible based on patient's age to complete this topic Meningococcal Vaccine Aged Out No jaren maty eligible based on patient's age to complete this topic RSV Immunizations Under 20 Months Aged Out No longer eligible based on patient's age to complete this topic Insurance Care Teams Manager Psychology Relationship Specialty Start Date End Date Pawan Ramírez MD [address] [place] [phone] PCP - General FAMILY PRACTICE 06/28/19
--- OUTSIDE RECORDS SUMMARY | 2024-11-30 07:58 | XMS_ITS | Data Portability ---
Author Organization [facility] Address [address] [place] [address] Care Team Providers Care Parking Meter Servicer Name Role Phone SHELBY ELY Primary Care Provider [phone] Assessment Encounter Date Assessment Date Assessment LastModified [...] recorded. Imaging MAMMO, screening, bilateral 2022 023 [facility], [address], [place], [address], 3 05:01:00 DEXA, axial skeleton + vertebral fracture assessment 2022 023 [facility], [address], [place], [address], 3 05:01:00 Medication Orders None recorded. Patient TargetsNo targets recorded. Patient InstructionsNo instructions recorded. Reason for Referral None Reported. Problems Name Problem SNOMED Code Status Onset Date Resolution Date Notes Provider Name and Address Organization Details Recorded Time Microscop ic hematuria [id number] Active 2012 MICROSCOPI C HEMATURIA; Recorded Elsewhere: No Locatio n: [facility] Kristal rce: EHR Chroni c: N Practice ID: 0001 Billa ble Time: 08:30:00 AM Not Available [facility] 0 14:40:02 Adult health examinati on Active 2011 Routine Medical Exam;Recor ded Elsewhere: No Locatio n: [facility] rce: EHR Chroni c: N Practice ID: 0001 Billa ble Time: 09:30:00 AM Not Available [facility] 0 14:40:02 Screening for malignant neoplasm of rectum Active 2016 Encounter for screening for malignant neoplasm of rectum;Rec orded Elsewhere: No Locatio n: [facility] rce: EHR Chroni c: N Practice ID: 0001 Billa ble Time: 08:45:00 AM Not Available [facility] 0 14:40:02 Specializ ed medical examinati on Active 2011 Gynecologi maryjo Examinatio n;Recorded Elsewhere: No Locatio n: [facility] rce: EHR Chroni c: N Practice ID: 0001 Billa ble Time: 09:30:00 AM Not Available [facility] 0 14:40:02 Screening for malignant neoplasm of cervix Active 2016 Screening for malignant neoplasms of the cervix;Rec orded Elsewhere: No Locatio n: [facility] rce: EHR Chroni c: N Practice ID: 0001 Billa ble Time: 08:45:00 AM Not Available [facility] 0 14:40:02 Body mass index 30+ - obesity 394452810 Active 2016 Body mass index (BMI) 32.0-32.9, adult;Abdi rded Elsewhere: No Locatio n: [facility] rce: EHR Chroni c: N Practice ID: 0001 Billa ble Time: 08:45:00 AM Not Available [facility] 0 14:40:02 Atypical squamous cells of undetermi deejay significa nce on cervical Papanicol aou smear 071387234 Active 2014 Papanicola ou smear of cervix with atypical squamous cells of undetermin ed significan ce (ASC-US);R ecorded Elsewhere: No Locatio n: [facility] rce: EHR Chroni c: N Practice ID: 0001 Billa ble Time: 08:45:10 AM Not Available [facility] 0 14:40:[address] Concept Active 2018 Encntr for general adult medical exam w/o abnormal findings;R ecorded Elsewhere: No Locatio n: [facility] rce: EHR Chroni c: N Practice ID: 0001 Billa ble Time: 01:30:00 PM Not Available [facility] 0 14:40:[address] Concept Active 2015 Encntr for golf stud riveter exam (general) (routine) w/o abn findings;R ecorded Elsewhere: No Locatio n: [facility] rce: EHR Chroni c: N Practice ID: 0001 Billa ble Time: 09:30:00 AM Not Available [facility] 0 14:40:02 Abdominal pain 50568467 Active 2011 Abdominal pain, other specified site;Recor ded Elsewhere: No Locatio n: [facility] rce: EHR Chroni c: N Practice ID: 0001 Billa ble Time: 09:00:00 AM Not Available [facility] 0 14:40:02 Evaluatio n finding 541969946 Active 2014 Positive high risk HPV DNA test of vagina;Rec orded Elsewhere: No Locatio n: [facility] rce: EHR Chroni c: N Practice ID: 0001 Billa ble Time: 09:15:00 AM Not Available [facility] 0 14:40:02 Leukocyto sis 184071125 Active 2013 LEUKOCYTOS IS NOS;Record ed Elsewhere: No Locatio n: [facility] rce: EHR Chroni c: N Practice ID: 0001 Billa ble Time: 09:30:00 AM Not Available [facility] 0 14:40:02 Atypical squamous cells on cervical Papanicol aou smear cannot exclude high grade squamous intraepit helial lesion 172444955 Active 2018 Atyp squam cell not excl hi grd intrepith lesn cyto smr crvx;Recor ded Elsewhere: No Locatio n: [facility] rce: EHR Chroni c: N Practice ID: 0001 Billa ble Time: 09:53:38 AM Not Available [facility] 0 14:40:03 Insect bite of ear region 527052175 Active 2015 Insect bite (nonvenomo us) of unspecifie d ear, sequela;Re corded Elsewhere: No Locatio n: [facility] rce: EHR Chroni c: N Practice ID: 0001 Billa ble Time: 09:30:00 AM Not Available [facility] 0 14:40:03 Female genital organ symptoms 955694315 Active 2011 Unspecifie d symptom associated with female genital organs;Rec orded Elsewhere: No Locatio n: [facility] rce: EHR Chroni c: N Practice ID: 0001 Billa ble Time: 09:30:00 AM Not Available [facility] 0 14:40:03 Right lower quadrant pain 335830513 Active 2011 Abdominal pain, right lower quadrant;P ractice ID: 0001 Not Available [facility] 0 14:40:04 Pre-surge ry evaluatio n Active 2011 Pre-operat aliyah examinatio n, unspecifie d;Practice ID: 0001 Not Available [facility] 0 14:40:04 Cyst of ovary 12535081 Active 2011 OVARIAN CYST;Pract ice ID: 0001 Not Available [facility] 0 14:40:04 Nonvenomo us insect bite of toe without infection 7805298 Active 2015 Insect bite (nonvenomo us), left lesser toe(s), init encntr;Pra ctice ID: 0001 Not Available [facility] 0 14:40:05 Problem Notes None recorded. Procedures Surgical History Date Name Laterality Status Provider Name and Address Organization Details Recorded Time 022 Date of Last Mammogram completed [facility] 10/02/2022 09:58:53 019 Date of [facility] 09:58:16 014 procedure on knee completed [facility] 10/02/2022 10:01:12 013 hernia repair completed [facility] 10/02/2022 09:30:40 012 Laparoscopy completed [facility] 10/02/2022 09:28:20 012 laparoscopic bilateral salpingo-oophorectom y completed [facility] 10/02/2022 09:29:40 009 cardiac catheterization completed [facility] 10/02/2022 09:31:54 008 Carpal tunnel surgery completed [facility] 10/02/2022 09:30:51 008 re-release of carpal tunnel completed [facility] 10/02/2022 09:32:18 006 Total Hysterectomy completed [facility] 10/02/2022 09:47:15 006 Partial Hysterectomy completed [facility] 10/02/2022 09:47:25 005 cholecystectomy completed [facility] 10/02/2022 09:31:05 005 Dilation and Curettage completed [facility] 10/02/2022 09:47:04 004 procedure on neck completed [facility] 10/02/2022 10:00:45 003 reconstruction of intervertebral disc completed [facility] 10/02/2022 09:45:31 992 Tubal Ligation completed [facility] 10/02/2022 09:31:33 984 Cystourethroscopy completed [facility] 10/02/2022 09:45:53 977 tonsilectomy/adenoid s completed [facility] 10/02/2022 09:46:20 Imaging Results None recorded. Procedure Notes None recorded. Medical Equipment None Reported. Allergies No known drug allergies Medications Name Sig Start Date Stop Date Status Note LastModified by Organization Details LastModified Time amoxicill in 500 mg capsule take 1 capsule (500MG) by oral route 3 times every day for 10 days 02/12 completed Prescrib ed Elsewher e: No Locat ion: [facility] odify By: cmedical Encount er DateTime : 02/04/20 12 09:52:24 AM Not Available Not Available Not Available albuterol (bulk) powder 01/14 completed Prescrib ed Elsewher e: Yes Loca tion: [facility] odify By: moris louise DateTime : [...] Prescrib ed Elsewher e: Yes Loca tion: [facility] odify By: bruce louise DateTime : [...] ed Elsewher e: Yes Loca tion: [facility] odify By: guy diorunthaider DateTime : 01/14/20 12 05:18:44 PM Not Available Not Available Not Available Advair Diskus 100 mcg-50 mcg/dose powder for inhalatio n inhale 1 puff by inhalati on route 2 times every day in the morning and evening approxim ately 12 hours apart 10/02 completed Prescrib ed Elsewher e: Yes Loca tion: [facility] odify By: cam Portillo nthaider DateTime : [...] ed Elsewher e: Yes Loca tion: [facility] odify By: smccynthiay Josselin neumann DateTime : [...] ed Elsewher e: No Locat ion: [facility] odify By: amrafi diorunter DateTime : 01/26/20 14 03:43:34 PM Not Available Not Available Not Available Cipro 500 mg tablet take 1 tablet by oral route every 12 hours 03/23 completed Prescrib ed Elsewher e: No Locat ion: [facility] odify By: jeffrey neumann DateTime : 01/29/20 16 09:30:00 AM Not Available Not Available Not Available buspirone 10 mg tablet take 1 tablet by oral route 3 times every day 08/04 completed Prescrib ed Elsewher e: Yes Loca tion: [facility] odify By: guy diorunthaider DateTime : 01/30/20 12 09:00:00 AM Not Available Not Available Not Available Wellbutri n 75 mg tablet take 1 tablet by oral route 3 times every day 01/19 completed Prescrib ed Elsewher e: Yes Loca tion: [facility] odify By: brigido louise DateTime : [...] Elsewher e: Yes Loca tion: [facility] odify By: moris louise DateTime : 01/14/20 12 05:18:44 PM Not Available Not Available Not Available Alprazola m Intensol 1 mg/mL oral concentra te take 0.25 millilit er by oral route 3 times every day mixed with water, juice, soda, soda-lik e beverage , applesau ce or pudding 01/14 completed Prescrib ed Elsewher e: Yes Loca tion: [facility] odify By: moris louise DateTime : 01/14/20 12 05:18:44 PM Not Available Not Available Not Available gabapenti n 100 mg capsule TAKE 1 CAPSULE BY MOUTH TWICE DAILY NEEDED active Not Available Not Available No t Available metoprolo l tartrate (bulk) 100 % powder 10/02 completed Prescrib ed Elsewher e: Yes Loca tion: [facility] odify By: aiyana pool DateTime : [...] Elsewher e: Yes Loca tion: [facility] odify By: brigido louise DateTime : [...] Prescrib ed Elsewher e: No [facility]at [facility] odify By: cam bowling DateTime : 03/23/20 19 01:30:00 PM Not Available Not Available Not Available Flector 1.3 % transderm al 12 hour patch apply 1 patch by transder mal route 2 times every day to most painful area 01/14 completed Prescrib ed Elsewher e: Yes Loca tion: Cong tori [facility] odify By: moris louise DateTime : [...] Updated DateTime 10/02/2022 170.18 cm 29.4 kg/m2 19352.37 g 120 mm[Hg] 72 mm[Hg] [facility] 10:06:16 Social History None recorded. 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 Do monthly self breast exams. It is advised to get annual flu shot in the fall and she could obtain at [facility] or [facility] care clinic. If you haven't received the [...] Routine Labs PCPMammo ordered Screening mammography 24 411872 Z12.31 Postmenopa usal osteopenia [id number] M85.80 Health Concerns Section Related Observation LastModified by Organization Detai ls LastModified Time None Recorded Concern Status LastModified by Organization Details LastModified Time None Recorded Advance Directives Directive None Recorded Payers Encounter Date Sequence Insurance Name Policy Number Policy Harding Covered Member ID Harding Member ID Guarantor Name 10/02/2022 1 [facility]: PPN) [id number] Daryn Anthony [id number] Daryn Anthony Notes Date Note Type Note Provider Name and Address Organization Details Recorded Time 10/02/2022 text/html 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 10/02/2022 10:26:04 OBGyn Episode Ob Episode Information Episode Created Date Number of Fetuses Patient Bloodtype Patient rh Status Prepregnancy Weight lbs Domestic Partner Domestic Partner Phone Father Name Motor Grader Rough Grade Status 10/03/19 23 1 CLOSED Fetus Data First Name Last Name Admitted to NICU Weight (g) Sex Living Outcome Pediatric Complications Fetus ID Race Codes Race Delivery Type 2438.05 7 F Full Term [id number] Vaginal Delivery Greyson Calculation Initial Greyson Date [...] Domestic Partner Domestic Partner Phone Father Name Motor Grader Rough Grade Status 10/03/19 23 1 CLOSED Fetus Data First Name Last Name Admitted to NICU Weight (g) Sex Living Outcome Pediatric Complications Fetus ID Race Codes Race Delivery Type 2863.07 2704 M Full Term 07455 Vaginal Delivery Greyson Calculation Initial Greyson Date [...]
--- OUTSIDE RECORDS SUMMARY | 2024-11-30 07:58 | XMS_ITS | Clinical Summary ---
Author Organization [facility] [employer] Address [address] [place] [address] Care Team Providers Care Home Health Lvn Name Role Phone Pawan Ramírez MD Primary Care Provider [phone] Source Comments [facility] [employer] | [employer],non-owned Affiliates and Associated Physician Practices is amultiple site organization consisting of ambulatory clinics and hospital sitesin [place], [place], [place] and [place]. This disclosure is being madepursuant to the Care Everywhere program and may not contain all information available regarding this patient. Last updated 18.[facility] [employer] Allergies No known active allergies Medications * Be aware that medications may not be up to date on this document. Alwaysverify current medications with the patient. metoprolol succinate XL 24hr (TOPROL XL) 50 MG tablet Take 50 mg by mouth once daily 0 9 Active buPROPion XL 24hr (WELLBUTRIN-XL) 300 MG tablet TK 1 T PO QD IN THE MORNING 0 9 Active chlorthalidone (HYGROTON) 25 MG tablet TK 1 T PO QD IN THE MORNING 0 9 Active naproxen (NAPROSYN) 500 MG tablet 2 times daily as needed 0 9 Active fluticasone-mackenzie meterol (ADVAIR DISKUS) 250-50 MCG/DOSE inhaler Inhale 1 puff by mouth 2 times daily Active Estradiol (DIVIGEL TD) Active albuterol HFA (PROVENTIL;VENT ALTAF;PROAIR) 108 (90 Base) MCG/ACT inhaler Inhale 2 puffs by mouth every 6 hours as needed Active Nerve Stimulator (TENS THERAPY PAIN RELIEF) DEVIIndications :Neck pain Use 1 device as needed (apply to posterior neck and shoulder region) 1 device 9 Active HYDROcodone-nazario taminophen (NORCO) 5-325 MG tablet Take 1 (one) tablet by mouth every 4 hours as needed 12 tablet Active Active Problems Problem Noted Date Diagnosed Date Cervical radiculopathy 10/17/2020 Social History Tobacco Use Types Packs/Day Years Used Date Smoking Tobacco: Never Smokeless Tobacco: Never Alcohol Use Standard Drinks/Week Comments No 0 (1 standard drink = 0.6 oz pur e alcohol) Comments No Sex and Gender Information Value Date Recorded Sex Assigned at Not on file 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 Gender Identity Not on file Sexual Orientation Not on file Last Filed Vital Signs Vital Sign Reading Time Taken Comments Blood Pressure 126/76 04/15/2021 2:33 PM CDT Pulse 82 04/15/2021 2:33 PM CDT Temperature 36.5 C (97.7 F) 04/15/2021 2:33 PM CDT Respiratory Rate 20 11/19/2020 11:27 AM CDT [...] of 2) 2011 SCREENING FOR DIABETES 11/03/2023 , 10/30/2020 COVID-19 VACCINE (1 - 2023-2 5 season) 2024 DEPRESSION SCREENING 07/27/2024 INFLUENZA VACCINE (Season Ended) 2025 Respiratory Syncytial Virus (RSV) Vaccine Pt: or [...] complete this topic MENINGOCOCCAL (Group B) VACCINE SHARED DECISION-MAKING Aged Out No longer eligible based on patient's age to complete this topic MENINGOCOCCAL GROUPS A/C/Y/W VACCINE Aged Out No longer eligible b ased on patient's age to complete this topic Medical Devices Implanted Type Area Manufacturing Teacher Device Identifier Shelf Expiration Date Model / Serial / Lot Spcr Algrf [id number] Spne Crv - [id number] Implanted:Qty : 1 on 11/01/2020 by Bala Tamayo MD at [facility] Spine Cervical [employer] 04/20/2023 [id number] / [id number] / [id number] Screw Pk2 4.0x15 Radha Canela Implanted:Qty : 1 on 11/01/2020 by Bala Tamayo MD at [facility] Spine Cervical [employer] 08/09/2023 [id number] / / [id number] Screw Pk2 4.0x15 Radha Canela Implanted:Qty : 1 on 11/01/2020 by Bala Tamayo MD at [facility] Spine Cervical [employer] 08/09/2023 [id number] / / [id number] Plate Sds 21mm Ti Strl Implanted:Qty : 1 on 11/01/2020 by Bala Tamayo MD at [facility] Spine Cervical [employer] 08/27/2023 [id number] / / [id number] Explanted Type Area Manufacturing Teacher Device Identifier Shelf Expiration Date Model / Serial / Lot Plate Sds 19mm Ti Strl Explanted:Qty: 1 on 11/01/2020 by Bala Tamayo MD at [facility] Spine Cervical [employer] 08/22/2023 [id number] / / [id number] Procedures Procedure Name Priority Date/Time Associated Diagnosis [...] - 31 mmol/L 11/02/2020 4:25 AM CDT [facility] Calcium 8.6 8.4 - 10.4 mg/dL 11/02/2020 4:25 AM CDT [facility] Anion Gap 11 8 - 18 mmol/L 11/02/2020 4:25 AM CDT [facility] Comment:Attention clinician: Reference Range change. BUN 16 9.8 - 20.1 mg/dL 11/02/2020 4:25 AM CDT [facility] Creatinine 0.92 0.57 - 1.11 mg/dL 11/02/2020 4:25 AM CDT [facility] eGFR by MDRD >60 >60 mL/min/1.7 3m2 11/02/2020 4:25 AM CDT [facility] eGFR by MDRD >60 >60 mL/min/1.7 3m2 11/02/2020 4:25 AM CDT [facility] Blood BLOOD SPECIMEN / Unknown Lab Venipuncture / Unknown 11/02/2020 2:44 AM CDT 11/02/2020 3:57 AM CDT Gricel Monge INTAKE RN-BLOOD BANK BOOKING CLERK LAB - CHEMISTRY ORDERABLES Final Result [facility] [address] [place] [address] from Last 3 Months or Most Recently Relevant to Health Maintenance Insurance [facility] SELF PAY NO INSURANCE Member Subscriber Plan / Payer (Ef fective for All Dates) Name:Cris Rivera Member ID:Not on file Relation to Subscriber:Not on file Name:CRIS RIVERA Subscriber ID:Not on file Address: [address] [place] [id number] Payer ID:Not on file Group ID:Not on file Type:Self Pay Address: [place], [place] Advance Directives * Full Code (Latest Code Status on File) Date Activated Date Inactivated Comments 11/01/2020 3:19 PM 11/02/2020 7:06 PM Care Teams Home Health Lvn Relationship Specialty Start Date End Date Pawan Ramírez MD [address] [place] [address] [place] [address] PCP - General 11/24/18"
--- OUTSIDE RECORDS SUMMARY | 2024-11-30 07:58 | XMS_ITS | Continuity of Care Document ---
Author Organization [facility] Address [address] [place] [address] Phone Care Team Providers Care Policy Change Clerks Supervisor Name Role Phone Kush Yaeñz MD Unavailable Unavailable Medications Medication Instructions Dosage [...] Date Provider Providers Copied on Encounter [facility], [address] [place] [address], [id number], tel:[phone] No Information 4 Pari Currie. [address] [place] [address], [place] [address], [place], [place], [id number] , [place]. tel: [phone] Independent Medical Examination [facility], [address] [place] [address], [id number], tel:[phone] [facility] JOINT PAIN-L/LEG 4 Pari Currie. [address] [place] [address], [address], [place], [place], [id number] , [place]. tel: [phone] Family History Family Member Type Diagnosis Age At Onset Father Problem (finding) diabetes melli tus in first degree relative Father Problem (finding) Heart Trouble Mother Problem (finding) diabetes melli tus in first degree relative Father Problem (finding) hypertension Mother Problem (finding) Heart Trouble Mother Problem (finding) hypertension Payers Payer name Insurance type Covered green party ID Emile anthony(s) [facility] [id number] Social History Type Description Quantity Date Captured Comments Sex Female Smoking Status No Information Chief Complaint And Reason For Visit No Information Reason For Referral Reason For Referral No Information Plan Of Treatment Date Type Action Status Referral Ordered: X-ray exam knee, 1 or 2 views LT ordered Referral Ordered: X-ray exam both knees, standing ordered History Of Present Illness Encounter Date Complaint History Of Prese nt Illness No Information Functional Status Date Functional Assessmen t No Information Instructions Date Instruction Additional Infor mation No Information Assessments Type Assessment Date No Information Patient Care Teams Name Effective Dates (start - stop) Status Members No Information
== END 2024-11-30 07:53 | disposition home or self-care (01) ==
PROVIDERS: PCP Family Medicine; Visit Provider Neurological Surgery
DX: Z98.1 Arthrodesis status (principal)
CPT/HCPCS: 72040

== ENCOUNTER 2025-06-06 07:16 | Outpatient (CLI) | payer BC, SELFPAY ==
--- NOTE | ~2025-06-06 | XR_ITS ---
XR_CERV2-3V_CR 06/06/2025 07:37 Indication: Arthrodesis status. Follow-up surgery. Procedure: 3 view cervical spine Comparison: 11/30/2024 Findings: There are changes of discectomy and anterior cervical fusion at C4-5. Hardware intact. There are also fusion changes at C6-7. There is an esophagectomy with fusion at C5-6. No prevertebral soft tissue swelling. All hardware position unchanged. No acute fracture or traumatic malalignment. Impression: 1: No significant interval change. Stable appearance to cervical spine status post fusion at C4-5 through C6-7. Reviewed, dictated and finalized at location C. AGE REPORTER Impression: 1: No significant interval change. Stable appearance to cervical spine status p ost fusion at C4-5 through C6-7.
== END 2025-06-06 07:17 | disposition home or self-care (01) ==
PROVIDERS: PCP Family Medicine; Visit Provider Neurological Surgery
DX: Z98.1 Arthrodesis status (principal)
CPT/HCPCS: 72040